=== PATIENT | female | born 1930 | race Caucasian/White ===

== ENCOUNTER 2017-03-27 08:50 | Inpatient (IN) | payer MEDICARE ==
[2017-03-27] VITALS (15 sets, daily range): BP systolic 106–156; BP diastolic 51–141
[~2017-03-27] VITALS: Ht 160 cm; Wt 52.6 kg
[2017-03-27] MEDS ORDERED: ACETAMINOPHEN ES 500 MG TABLET PO ONE (09:00)
[2017-03-27] MEDS ORDERED: IPRATROPIUM NEB FS 0.5 MG/2.5 ML AMPUL.NEB NEB ONE (09:00)
[2017-03-27] MEDS ORDERED: IV NS 0.9% 1,000 ML BAG IV ONE (09:00)
[2017-03-27] MEDS ORDERED: ALBUTEROL FS 2.5 MG/3 ML VIAL.NEB NEB ONE (09:00)
--- NOTE | 2017-03-27 09:00 | NUR ---
PT ACDEN FROM SNF FOR SOB SATING AT 88% RA. PT AAOX3. PLACED ON OXYGEN. AT FOR EVAL. SAFETY AND COMFORT MEASURES PROVIDED. WILL MONITOR.
[2017-03-27] MEDS ORDERED: IPRATROPIUM NEB FS 0.5 MG/2.5 ML AMPUL.NEB ONE (09:06)
[2017-03-27] MEDS ORDERED: ALBUTEROL FS 2.5 MG/3 ML VIAL.NEB ONE (09:06)
[2017-03-27] MEDS ORDERED: ACETAMINOPHEN ES 500 MG TABLET ONE (09:08)
[2017-03-27] MEDS ORDERED: IV NS 0.9% 2,000 ML ONE (09:08)
[2017-03-27] MEDS ORDERED: IV SET PRIMARY PUMP SET 1 EA INFUS.SET MC ONE ×4 (09:08→19:00)
--- NOTE | 2017-03-27 09:20 | NUR ---
PT MEDICATED ORDERED.
[2017-03-27 09:21] LABS: BASOPHILS % (AUTO) 0.2 % (0.0-2.0); EOSINOPHILS % (AUTO) 0.4 % (0.0-6.0); HEMATOCRIT 38 % (33-45); HEMOGLOBIN 12.2 g/dL (11.5-14.8); LYMPHOCYTES # (AUTO) 1.6 /CMM (0.8-4.8); LYMPHOCYTES % (AUTO) 13.3 % (20.0-44.0); MEAN CORPUSCULAR HEMOGLOBIN 27 PG (26.0-33.0); MEAN CORPUSCULAR HGB CONC 32 g/dl (31.0-36.0); MEAN CORPUSCULAR VOLUME 84 fL (82-100); MONOCYTES % (AUTO) 8.1 % (2.0-12.0); NEUTROPHILS # (AUTO) 9.2 /CMM (1.8-8.9); PLATELET COUNT (AUTO) 247 /CMM (150-450); RED BLOOD CELL COUNT(AUTO) 4.55 MIL/uL (4.0-5.2); WHITE BLOOD COUNT (AUTO) 11.8 K/uL (4.3-11.0)
--- NOTE | 2017-03-27 09:33 | NUR ---
SURESH AT BS.
[2017-03-27 09:39] LABS: CALCIUM, SERUM 9.2 mg/dL (8.5-10.1); CREATININE 0.9 mg/dL (0.6-1.3); POTASSIUM 3.9 mmol/L (3.5-5.1)
[2017-03-27] MEDS ORDERED: CT SWABBABLE VALVE TRANS SET 1 EA INFUS.SET MC ONE (09:43)
[2017-03-27] MEDS ORDERED: IOHEXOL-350 100 ML VIAL IV ONE (09:43)
[2017-03-27] MEDS ORDERED: IOPAMIDOL 15 ML VIAL IT ONE (09:44)
[2017-03-27] MEDS ORDERED: IV NS 0.9% 250 ML IV ONE (09:45)
[2017-03-27 09:48] LABS: LACTIC ACID 1.3 mmol/L (0.4-2.0); TROPONIN I 0.022 ng/mL (0.00-0.056)
[2017-03-27 09:49] LABS: PROTHROMBIN TIME 86.2 SECS (9.5-12.7)
[2017-03-27 09:52] LABS: ALBUMIN 2.9 g/dL (3.4-5.0); BILIRUBIN,TOTAL 0.2 mg/dL (0.2-1.0); TOTAL PROTEIN, SERUM 8.3 g/dL (6.4-8.2)
[2017-03-27 09:53] LABS: INR 7.11 (0.87-1.13)
[2017-03-27 09:57] LABS: APPEARANCE,URINE Clear (CLEAR); BILIRUBIN,URINE Negative (NEGATIVE); BLOOD, URINE Trace-intact Ery/uL (NEGATIVE); COLOR,URINE Yellow (YELLOW); KETONES,URINE Trace (NEGATIVE); LEUKOCYTE ESTERASE ,URINE Negative (NEGATIVE); NITRITE, URINE Negative (NEGATIVE); PH,URINE 5.5 (5.0-8.0); PROTEIN,URINE 30 mg/dl (NEGATIVE); UGLUCOSE Negative (NEGATIVE); UROBILINOGEN,URINE 0.2 EU/dL (0.2)
[2017-03-27] MEDS ORDERED: VANCOMYCIN 1 GM in IV D5W 250 ML IV ONE (10:00)
[2017-03-27] MEDS ORDERED: CEFEPIME 1 GM in IV D5W 50 ML IV ONE (10:00)
[2017-03-27 10:04] LABS: ADD URINE CULTURE NO; BACTERIA,URINE Rare /HPF (None Seen); MUCUS,URINE Few /LPF (None Seen); SQUAMOUS EPITHELIAL CELL,UR Few /HPF (None Seen)
[2017-03-27 10:05] LABS: HYALINE CASTS, URINE Rare /LPF (None Seen)
--- NOTE | 2017-03-27 10:07 | NUR ---
HOSPICE SOCIAL WORKER ROLANDO CALLED TO REFUSE CT SCAN, DEMANDING 2ND IV BE PLACED ON AC DUE TO PROTOCOL
[2017-03-27] MEDS: Magnesium 1GM/D5W 100ML PREMIX 100 ML IV SCH ×3 (10:12→21:33)
[2017-03-27] MEDS ORDERED: LACT1CAP57 PO (10:49)
[2017-03-27] MEDS ORDERED: DORZ10DR13 LEFTEYE (10:49)
[2017-03-27] MEDS ORDERED: FURO20TA4 PO (10:49)
[2017-03-27] MEDS ORDERED: ATOR20TA PO (10:49)
[2017-03-27] MEDS ORDERED: SALM50DI IH (10:49)
[2017-03-27] MEDS ORDERED: LEVO75TA7 PO (10:49)
[2017-03-27] MEDS ORDERED: LORA0.5T PO (10:49)
[2017-03-27] MEDS ORDERED: HYDR-552 PO (10:49)
[2017-03-27] MEDS ORDERED: LATA2.5D7 LEFTEYE (10:49)
[2017-03-27] MEDS ORDERED: APIX5TAB PO (10:49)
[2017-03-27] MEDS ORDERED: MIRT7.5T10 PO (10:49)
[2017-03-27] MEDS ORDERED: BISA10SU8 RC (10:49)
[2017-03-27] MEDS ORDERED: ACET325T53 PO (10:49)
[2017-03-27] MEDS ORDERED: SERT100T12 PO (10:49)
[2017-03-27] MEDS ORDERED: CLON0.1T PO (10:49)
[2017-03-27] MEDS ORDERED: LOPE2TAB57 PO (10:49)
[2017-03-27] MEDS ORDERED: DILTIAZEM HCL 25 MG IV ONE (10:56)
[2017-03-27] MEDS ORDERED: MORP2SYR3 IV (10:58)
[2017-03-27] MEDS ORDERED: SENN-74 PO (10:58)
[2017-03-27] MEDS ORDERED: ONDA4SYR IV (10:58)
[2017-03-27] MEDS ORDERED: ZOLP5TAB7 PO (10:58)
[2017-03-27] MEDS ORDERED: NITR0.4T6 SL (10:58)
[2017-03-27] MEDS ORDERED: PANT40TA4 PO (10:58)
[2017-03-27] MEDS ORDERED: DILTIAZEM HCL IV 125 MG in IV D5W 100 ML IV ONE (11:00)
[2017-03-27] MEDS ORDERED: DILTIAZEM HCL 25 MG IV IVP ONE (11:00)
--- NOTE | 2017-03-27 11:14 | NUR ---
CARDIZEM IVP GIVEN, HR DECREASED, BP DECREASED PER MD TO HOLD CARDIZEM IV DRIP FOR NOW AND CLOSELY MONITOR HR. ORDERS CARRIED OUT.
[2017-03-27] MEDS ORDERED: IV NS 0.9% 1,000 ML IV PRN (12:02)
--- NOTE | 2017-03-27 12:10 | NUR ---
DR. BRUNER AT FOR EVAL AND GAVE VERBAL ORDERS TO DC CARDIZEM DRIP AND START PT ON AMIODARONE DRIP.
--- NOTE | 2017-03-27 12:15 | NUR ---
DR. ESPARZA AT BS FOR CINDYAL.
[2017-03-27] MEDS ORDERED: ONDANSETRON HCL IV PRN (12:30)
[2017-03-27] MEDS ORDERED: ACETAMINOPHEN 325 MG TABLET PO PRN ×2 (12:30→13:00)
[2017-03-27] MEDS ORDERED: BISACODYL SUPP (10 MG) 10 MG/SUPP.RECT SUPP.RECT RC PRN (12:30)
[2017-03-27] MEDS ORDERED: [UNRECOGNIZED DRUG - OTHER] IV PRN (12:30)
[2017-03-27] MEDS ORDERED: NITROGLYCERIN 0.4 MG/TAB BOTTLE SL PRN (12:30)
[2017-03-27] MEDS ORDERED: PANTOPRAZOLE 40 MG TABLET.DR PO SCH ×2 (12:30→13:00)
[2017-03-27] MEDS ORDERED: SALMETEROL XINAFOATE 1 DISK DISK IH SCH (12:30)
[2017-03-27] MEDS ORDERED: HYDROCODONE/APAP 5/325MG 1 EACH TABLET PO PRN (12:30)
[2017-03-27] MEDS ORDERED: AMIODARONE 150 MG in IV D5W 100 ML IV ONE (12:30)
[2017-03-27] MEDS ORDERED: TIMOLOL MAL/DORZOLAM HCL OPHTH 10 ML BOTTLE LEFTEYE SCH (12:30)
[2017-03-27] MEDS ORDERED: AMIODARONE 900 MG in IV D5W 500 ML IV PRN (12:30)
[2017-03-27] MEDS ORDERED: ZOLPIDEM TARTRATE 5 MG TABLET PO PRN ×2 (12:30→13:00)
[2017-03-27 12:49] LABS: THYROID STIMULATING HORMONE 1.831 uIU/mL (0.358-3.74)
[2017-03-27] MEDS ORDERED: ONDANSETRON HCL/PF 4 MG/2 ML VIAL IVP PRN (13:00)
[2017-03-27] MEDS ORDERED: MAGNESIUM HYDROXIDE 30 ML UDC PO PRN (13:00)
[2017-03-27] MEDS ORDERED: Z GUARD REMEDY 2 OZ OINT TP PRN (13:00)
--- NOTE | 2017-03-27 13:49 | NUR ---
REPORT GIVEN TO RONNIE GARCIA FOR ICU ROOM 258.
[2017-03-27 13:52] LABS: ABG BASE EXCESS -5.9 mmol/L; ABG OXYGEN SATURATION 98.9 % (92.0-98.5); ABG PCO2 37.8 mmHg (35.0-45.0); ABG PO2 181.1 mmHg (75.0-100.0); ABG TOTAL HEMOGLOBIN 10.7 G/dL (12.0-16.0); AaDO2 205.1 mmHg; COHb 0.4 % (0.5-1.5); MetHb 0.4 % (0.0-1.5); O2Hb 98.1 % (94.0-97.0); SITE, ABG Right Radial; VENT MODE, BG NON REBREATHER
--- NOTE | 2017-03-27 13:57 | NUR ---
CORRECTION: ABG RESULTS REPORTED TO JOSE BOYD.
[2017-03-27 14:20] LABS: MAGNESIUM 1.5 mg/dL (1.8-2.4); PHOSPHORUS 3.5 mg/dL (2.5-4.9)
--- NOTE | 2017-03-27 14:30 | NUR ---
DR ESPARZA NOTIFIED THAT PT IS FREQUENT, NON PRODUCTIVE COUGH. HI STATED THAT HE WILL PUT SOMETHING FOR THAT.
[2017-03-27] MEDS ORDERED: APIXABAN 5 MG TABLET PO SCH (14:50)
[2017-03-27 14:52] LABS: TROPONIN I 0.022 ng/mL (0.00-0.056)
[2017-03-27] MEDS ORDERED: SECONDARY IV SET 1 EA INFUS.SET MC ONE (14:54)
[2017-03-27] MEDS: IV NS 0.9% 1,000 ML IV PRN (15:06)
[2017-03-27] MEDS ORDERED: MORPHINE SULFATE INJ 2 MG/ML DISP.SYRIN IV PRN (16:00)
[2017-03-27] MEDS ORDERED: FEE PK DOSING 1 MIN EA MC ONE (16:10)
[2017-03-27] MEDS ORDERED: PIPERACILLIN /TAZOBACTAM 4.5 G in IV D5W 50 ML IV SCH (16:12)
[2017-03-27] MEDS: TIMOLOL 0.5% SOLN OPHTH 5 ML BOTTLE LEFTEYE SCH (17:00)
--- NOTE | 2017-03-27 17:00 | NUR ---
MARIO HELD DUE TO HIGH INR, DR OGDEN HERE TO SEE PT. UPDATED ON PROGRESS.
[2017-03-27] MEDS: LEVOTHYROXINE SODIUM 75 MCG TABLET PO SCH ×2 (17:42→18:04)
[2017-03-27] MEDS: DORZOLAMIDE OPTH 2% 10 ML BOTTLE LEFTEYE SCH (17:42)
[2017-03-27] MEDS: LATANOPROST EYE DROP 0.005% 2.5 ML BOTTLE LEFTEYE SCH ×2 (17:42→18:05)
[2017-03-27] MEDS: LACTOBACILLUS RHAMNOSUS GG 1 EACH CAP.SPRINK PO SCH ×2 (17:42→18:03)
--- NOTE | 2017-03-27 18:00 | NUR ---
DAUGHTER AT BEDSIDE, SHE STATED THAT PT GETS COLD SORES FOR WHICH SHE TAKES VALTREX [address] ESPARZA AND GERARDO FOR ORDERS FOR VALTREX, COUGH MEDICINE AND PERHAPS RESPIRATORY THERAPY ORDERS. AWAITING FOR RESPONSE.
[2017-03-27] MEDS: PIPERACILLIN /TAZOBACTAM 4.5 G in IV D5W 50 ML IV SCH (18:05)
--- NOTE | 2017-03-27 19:05 | NUR ---
DECK AND HULL ASSEMBLER: RECEIVED PT A/O X 3. ON 4L 02 VIA NC WT SLIGHTLY LABORED BREATHING. NO C/O PAIN. SR ON OBGYN SPECIALIST. AMIODARONE DRIP CHANGED DOSE RATE AT 0.5MG/MIN OR 16.6ML/HR ORDERED. TOLERATING NS AT 75ML/HR WT NO S/S OF INFILTRATION. UNABLE TO INFUSE MG AT THIS TIME PENDING ANOTHER IV ACCESS. WILL TRY TO PLACE PERIPHERAL IV OR ASK MD FOR MIDLINE INSERTION. CAREGIVER AT BEDSIDE. SAFETY PRECAUTION NOTED.
[2017-03-27] MEDS: SENNOSIDES/DOCUSATE SODIUM 1 TAB TABLET PO SCH (21:10)
[2017-03-27] MEDS: GUAIFENESIN/D-METHORPHAN HB 5 ML UDC PO PRN (21:10)
[2017-03-27] MEDS: SERTRALINE HCL 50 MG TABLET PO SCH (21:10)
[2017-03-27] MEDS: MIRTAZAPINE 15 MG TABLET PO SCH (21:12)
--- NOTE | 2017-03-27 21:35 | NUR ---
LABOR/EXCAVATOR: PT TOLERATED MID LINE INSERTION AND JUST STARTED ON MG 1ST BAG. GIVEN ALL DUE MEDS ORDERED, COUGH SYRUP FOR COUGH AND TYLENOL FOR CDCP=488.5. COOLING MEASURES RENDERED AND REMOVED ALL BLANKETS. WILL CONTINUE TO MONITOR.
--- NOTE | 2017-03-27 22:30 | NUR ---
ART SUPERVISOR: REASSESSED AFTER GIVEN TYLENOL AND COOLING MEASURES WT NO MORE FEVER AT THIS TIME (98.6= ORAL). WILL CONTINUE TO MONITOR.
[2017-03-28] VITALS (25 sets, daily range): BP systolic 88–158; BP diastolic 44–135
--- NOTE | 2017-03-28 | NUR ---
WINDOWS APPLICATION PACKAGER: PLACED ON 7L VIA FACE MASK DUE TO DESAT. AT 85% 02 SAT.
[2017-03-28] MEDS: PIPERACILLIN /TAZOBACTAM 4.5 G in IV D5W 50 ML IV SCH ×2 (00:09→05:43)
[2017-03-28] MEDS: GUAIFENESIN/D-METHORPHAN HB 5 ML UDC PO PRN ×2 (04:31→21:20)
[2017-03-28] MEDS: IV NS 0.9% 1,000 ML IV PRN ×2 (04:32→17:24)
[2017-03-28] MEDS: VANCOMYCIN 0.75 GM in IV D5W 250 ML IV SCH ×2 (04:32→23:11)
[2017-03-28] MEDS ORDERED: SECONDARY IV SET 1 EA INFUS.SET MC ONE (04:38)
[2017-03-28 04:59] LABS: BASOPHILS % (AUTO) 0.3 % (0.0-2.0); HEMATOCRIT 28 % (33-45); LYMPHOCYTES % (AUTO) 13.2 % (20.0-44.0); MEAN CORPUSCULAR HEMOGLOBIN 28 PG (26.0-33.0); MEAN CORPUSCULAR HGB CONC 33 g/dl (31.0-36.0); MEAN CORPUSCULAR VOLUME 84 fL (82-100); MONOCYTES # (AUTO) 1.2 /CMM (0.1-1.30); NEUTROPHILS # (AUTO) 11.8 /CMM (1.8-8.9); NEUTROPHILS % (AUTO) 78.5 % (43.0-81.0); PLATELET COUNT (AUTO) 181 /CMM (150-450); RDW COEFFICIENT OF VARIATION 16.4 (11.5-15.0); RED BLOOD CELL COUNT(AUTO) 3.27 MIL/uL (4.0-5.2)
--- NOTE | 2017-03-28 05:00 | NUR ---
DIRECTOR COLLEGE: PLACED BACK ON 4L O2 VIA NC. REMAINED A/O X 3. NO ACUTE DISTRESS. NO C/O PAIN. BED BATH GIVEN.
[2017-03-28 05:20] LABS: BILIRUBIN,TOTAL 0.1 mg/dL (0.2-1.0); CREATININE 0.6 mg/dL (0.6-1.3); MAGNESIUM 1.5 mg/dL (1.8-2.4); PHOSPHORUS 2.5 mg/dL (2.5-4.9); TROPONIN I 0.089 ng/mL (0.00-0.056)
[2017-03-28 05:27] LABS: THYROID STIMULATING HORMONE 0.379 uIU/mL (0.358-3.74)
[2017-03-28 05:32] LABS: ALBUMIN 1.2 g/dL (3.4-5.0); CALCIUM, SERUM 5.2 mg/dL (8.5-10.1); POTASSIUM 2.2 mmol/L (3.5-5.1)
[2017-03-28] MEDS: PANTOPRAZOLE 40 MG TABLET.DR PO SCH (05:37)
--- NOTE | 2017-03-28 06:00 | NUR ---
GEAR GENERATOR SET UP OPERATOR: NOTIFIED MEDHAT MORA OF CRITICAL RESULTS: K=2.2, ALBUMIN=1.2, CA=5.2 AND MG STILL THE SAME 1.5 AFTER 2GM GIVEN. NO SIGNIFICANT HANNA. ASYMPTOMATIC. VS WITHIN HER BASELINE. DIGITAL MEDIA REPRESENTATIVE WT ORDERS FOR KCL 40MEQ IV AND MG 2GM IV. NOTED AND CARRIED OUT.
[2017-03-28] MEDS ORDERED: Magnesium 1GM/D5W 100ML PREMIX 100 ML IV ONE (06:11)
[2017-03-28] MEDS ORDERED: POTASSIUM CL. PREMIX PERIPHER. 50 ML ONE (06:11)
[2017-03-28] MEDS ORDERED: IV SET PRIMARY PUMP SET 1 EA INFUS.SET MC ONE (06:12)
[2017-03-28] MEDS: POTASSIUM CL. PREMIX PERIPHER. 50 ML IV SCH ×2 (06:19→10:12)
[2017-03-28] MEDS: Magnesium 1GM/D5W 100ML PREMIX 100 ML IV SCH (06:20)
[2017-03-28] MEDS ORDERED: IPRATROPIUM NEB FS 0.5 MG/2.5 ML AMPUL.NEB NEB PRN (07:30)
--- NOTE | 2017-03-28 07:47 | NUR ---
INITIAL TAILINGS DAM LABORER NOTE RCVD PT AWAKE AND ALERT SHOWING NO S/O DISTRESS OR C/O PAIN. SR ON TELE. ON SIMPLE MASK WITH SATURATION ABOVE 95%. PT REPORTS FEELING SOB. RT CALLED FOR BREATHING TX. IV SITES C/D/I/PATENT. NO S/O INFILTRATION OR PHLEBITIS OBSERVED. PT'S PRIVATE CAREGIVER AT BEDSIDE. WILL CONTINUE TO MONITOR FOR SAFETY AND COMFORT. CALL LIGHT WITHIN REACH. BED IN LOW AND LOCKED POSITION.
--- NOTE | 2017-03-28 08:12 | NUR ---
HAZARDOUS SUBSTANCES ENGINEER NOTE DR BRUNER AND DR. ESPARZA IN UNIT RECOMMENDED TO RE-DRAW THE MORNING LABS. ORDER ENTERED.
[2017-03-28] MEDS: LATANOPROST EYE DROP 0.005% 2.5 ML BOTTLE LEFTEYE SCH (08:59)
[2017-03-28] MEDS: LACTOBACILLUS RHAMNOSUS GG 1 EACH CAP.SPRINK PO SCH ×2 (09:01→16:34)
[2017-03-28] MEDS: LEVOTHYROXINE SODIUM 75 MCG TABLET PO SCH (09:06)
[2017-03-28 09:09] LABS: ABG BASE EXCESS -1.6 mmol/L; ABG OXYGEN SATURATION 95.3 % (92.0-98.5); ABG PCO2 59.5 mmHg (35.0-45.0); ABG PH 7.262 (7.350-7.450); ABG TOTAL HEMOGLOBIN 11.3 G/dL (12.0-16.0); AaDO2 129.8 mmHg; COHb 1.1 % (0.5-1.5); MetHb 1.1 % (0.0-1.5); O2Hb 93.2 % (94.0-97.0); SITE, ABG Right Radial; VENT MODE, BG SIMPLE MASK
[2017-03-28] MEDS: TIMOLOL 0.5% SOLN OPHTH 5 ML BOTTLE LEFTEYE SCH ×2 (09:12→16:35)
[2017-03-28] MEDS: DORZOLAMIDE OPTH 2% 10 ML BOTTLE LEFTEYE SCH ×2 (09:13→16:35)
[2017-03-28] MEDS: MIRTAZAPINE 15 MG TABLET PO SCH ×2 (09:15→16:43)
[2017-03-28 09:23] LABS: HEMATOCRIT 33 % (33-45); HEMOGLOBIN 10.5 g/dL (11.5-14.8); LYMPHOCYTES # (AUTO) 1.3 /CMM (0.8-4.8); LYMPHOCYTES % (AUTO) 7.4 % (20.0-44.0); MEAN CORPUSCULAR HEMOGLOBIN 27 PG (26.0-33.0); MEAN CORPUSCULAR HGB CONC 32 g/dl (31.0-36.0); MEAN CORPUSCULAR VOLUME 85 fL (82-100); MONOCYTES # (AUTO) 1.3 /CMM (0.1-1.30); MONOCYTES % (AUTO) 7.8 % (2.0-12.0); NEUTROPHILS # (AUTO) 14.6 /CMM (1.8-8.9); NEUTROPHILS % (AUTO) 84.8 % (43.0-81.0); PLATELET COUNT (AUTO) 177 /CMM (150-450); RDW COEFFICIENT OF VARIATION 16.2 (11.5-15.0); RED BLOOD CELL COUNT(AUTO) 3.88 MIL/uL (4.0-5.2); WHITE BLOOD COUNT (AUTO) 17.3 K/uL (4.3-11.0)
[2017-03-28 09:36] LABS: CALCIUM, SERUM 7.8 mg/dL (8.5-10.1); CREATININE 0.9 mg/dL (0.6-1.3); POTASSIUM 3.7 mmol/L (3.5-5.1)
--- NOTE | 2017-03-28 09:41 | NUR ---
DESIGN CONSULTANT NOTE DR. REYES IN UNIT GIVEN REPORT ON PT'S CONDITION AND CONSTANT VERBALIZATION OF SOB DESPITE BREATHING TX THIS AM. PT ASSESSED BY DR. REYES. NEW ORDERS RCVD AND ACKNOWLEDGED.
[2017-03-28 09:42] LABS: ALBUMIN 2.3 g/dL (3.4-5.0); BILIRUBIN,TOTAL 0.3 mg/dL (0.2-1.0); MAGNESIUM 2.2 mg/dL (1.8-2.4); PHOSPHORUS 3.2 mg/dL (2.5-4.9); TOTAL PROTEIN, SERUM 7.1 g/dL (6.4-8.2)
[2017-03-28 09:50] LABS: PROTHROMBIN TIME 93.5 SECS (9.5-12.7)
[2017-03-28 09:52] LABS: INR 7.67 (0.87-1.13)
--- NOTE | 2017-03-28 10:15 | NUR ---
BLOCK SORTER NOTE RE-DRAWN LAB WORK RESULTS RCVD MG AND K REPORTED WNL. MAG SULFATE AND KCL MEDS WERE NOT ADMINISTERED. DR. ESPARZA MADE AWARE. INR RESULTS WERE ALSO REPORTED. NO NEW ORDERES RCVD.
[2017-03-28] MEDS: methylPREDNISolone SOD SUCC 125 MG/2ML VIAL IV SCH ×3 (10:25→23:12)
[2017-03-28] MEDS: ACYCLOVIR 200 MG CAPSULE PO SCH ×3 (11:16→21:21)
[2017-03-28] MEDS: PIPERACILLIN /TAZOBACTAM 3.375 G in IV D5W 50 ML IV SCH ×2 (11:17→17:23)
[2017-03-28] MEDS: IPRATROPIUM NEB FS 0.5 MG/2.5 ML AMPUL.NEB NEB SCH ×4 (11:24→23:29)
[2017-03-28] MEDS: ALBUTEROL HALF STRENGTH 1.25 MG/3 ML VIAL.NEB NEB SCH ×4 (11:24→23:29)
[2017-03-28] MEDS: ACETYLCYSTEINE 10% SOLN 400 MG/4 ML VIAL NEB SCH ×2 (11:25→20:12)
[2017-03-28 13:11] LABS: ABG BASE EXCESS -0.8 mmol/L; ABG OXYGEN SATURATION 91.6 % (92.0-98.5); ABG PCO2 51.2 mmHg (35.0-45.0); ABG PH 7.319 (7.350-7.450); ABG TOTAL HEMOGLOBIN 10.6 G/dL (12.0-16.0); AaDO2 104.3 mmHg; COHb 0.4 % (0.5-1.5); MetHb 1.1 % (0.0-1.5); O2Hb 90.2 % (94.0-97.0); SITE, ABG Right Radial; VENT MODE, BG NASAL CANNULA
[2017-03-28] MEDS: AMIODARONE HCL 200 MG TABLET PO SCH (16:34)
--- NOTE | 2017-03-28 16:47 | NUR ---
BACTERIOLOGY RESEARCH ASSISTANT NOTE HERMELINDO JUARES PT FEELS VERY SLEEPY, AND LOW BP EARLIER THIS AFTERNOON. WILL CONTINUE TO MONITOR.
--- NOTE | 2017-03-28 18:51 | NUR ---
LIFE ENRICHMENT MANAGER NOTE PT AWAKE AND ALERT SHOWING NO S/O DISTRESS. TOLERATING O2 VIA NC. SR W/1ST AVB. VOIDING WELL TO DIAPER. RIGHT FA#20 DISCONTINUED EARLIER TODAY. GEORGINA MIDLINE REMAINS C/D/I/PATENT. NO S/O INFILTRATION OR PHLEBITIS OBSERVED. PT'S CARE WILL BE ENDORSED TO RN DIABETES RN AT CHANGE OF SHIFT. BED IN LOW AND LOCKED POSITION. CALL LIGHT WITHIN REACH.
--- NOTE | 2017-03-28 19:30 | NUR ---
FLOSSER: RECEIVED PT A/O X 3. ON 2L VIA NC WT NO ACUTE DISTRESS. NO C/O PAIN. HAD SMALL BOWEL MOVEMENT (SOFT-FORMED, BROWN COLOR) AFTER GIVEN SUPPOSITORY BY DAY SHIFT RN. PT STILL VERBALIZED THAT SHE IS CONSTIPATED. GOOD SKIN/CEM CARE RENDERED. WILL ADMINISTER MOM AND SEN[place]OT ORDERED. VS WITHIN HER BASELINE. WILL CONTINUE TO MONITOR.
[2017-03-28] MEDS: SENNOSIDES/DOCUSATE SODIUM 1 TAB TABLET PO SCH (21:20)
[2017-03-28] MEDS: ATORVASTATIN 10 MG TABLET PO SCH (21:21)
[2017-03-28] MEDS: SERTRALINE HCL 50 MG TABLET PO SCH (21:21)
[2017-03-29] VITALS (20 sets, daily range): BP systolic 103–159; BP diastolic 54–106
[2017-03-29] MEDS: PIPERACILLIN /TAZOBACTAM 3.375 G in IV D5W 50 ML IV SCH ×5 (00:31→23:39)
--- NOTE | 2017-03-29 03:15 | NUR ---
PEST CONTROLLER ASSISTANT: 0250: RECEIVED BLE DOPPLER US RESULT WT POSITIVE DVT ON LEFT POPLITEAL VEIN. 0305: RELAYED RESULT TO MORGAN MELÉNDEZ AND MADE HIM AWARE THAT ANTICOAGULANT IS ON HOLD DUE TO CRITICALLY HIGH INR=7.67 (5/) FROM 7.11, HAS HX OF LEFT HIP DVT. ACCOUNT SUPPORT ASSOCIATE WT ORDER FOR PT/INR AND APTT TODAY AND FOLLOW UP WT ROUNDING MD IN AM. NOTED AND CARRIED OUT. NO SIGNIFICANT HANNA AT THIS TIME. REMAINED A/O X 3. NO ACUTE DISTRESS. NO C/O PAIN.
[2017-03-29] MEDS: IPRATROPIUM NEB FS 0.5 MG/2.5 ML AMPUL.NEB NEB SCH ×6 (03:50→22:36)
[2017-03-29] MEDS: ALBUTEROL HALF STRENGTH 1.25 MG/3 ML VIAL.NEB NEB SCH ×6 (03:50→22:36)
--- NOTE | 2017-03-29 04:30 | NUR ---
WHOLESALE AGRONOMIST: BOWEL REGIMEN GIVEN WT GOOD EFFECT. HAD 1 MODERATE AMT. OF SOFT BROWN STOOLS. PT VERBALIZED SHE FELT MORE RELIEVED FROM BEING CONSTIPATED.
[2017-03-29 04:50] LABS: HEMATOCRIT 28 % (33-45); HEMOGLOBIN 9.2 g/dL (11.5-14.8); LYMPHOCYTES # (AUTO) 0.7 /CMM (0.8-4.8); LYMPHOCYTES % (AUTO) 5.5 % (20.0-44.0); MEAN CORPUSCULAR HEMOGLOBIN 28 PG (26.0-33.0); MEAN CORPUSCULAR HGB CONC 33 g/dl (31.0-36.0); MEAN CORPUSCULAR VOLUME 85 fL (82-100); MONOCYTES # (AUTO) 0.3 /CMM (0.1-1.30); MONOCYTES % (AUTO) 2.1 % (2.0-12.0); NEUTROPHILS # (AUTO) 11.5 /CMM (1.8-8.9); NEUTROPHILS % (AUTO) 92.4 % (43.0-81.0); PLATELET COUNT (AUTO) 164 /CMM (150-450); RDW COEFFICIENT OF VARIATION 16.3 (11.5-15.0); RED BLOOD CELL COUNT(AUTO) 3.31 MIL/uL (4.0-5.2); WHITE BLOOD COUNT (AUTO) 12.4 K/uL (4.3-11.0)
[2017-03-29 05:29] LABS: PROTHROMBIN TIME 82.9 SECS (9.5-12.7)
[2017-03-29 05:30] LABS: ALBUMIN 1.9 g/dL (3.4-5.0); BILIRUBIN,TOTAL 0.2 mg/dL (0.2-1.0); CALCIUM, SERUM 7.6 mg/dL (8.5-10.1); MAGNESIUM 1.8 mg/dL (1.8-2.4); PHOSPHORUS 2.1 mg/dL (2.5-4.9); TOTAL PROTEIN, SERUM 6.4 g/dL (6.4-8.2)
[2017-03-29 05:31] LABS: TROPONIN I 0.033 ng/mL (0.00-0.056)
[2017-03-29] MEDS: methylPREDNISolone SOD SUCC 125 MG/2ML VIAL IV SCH ×5 (05:37→23:39)
[2017-03-29] MEDS: PANTOPRAZOLE 40 MG TABLET.DR PO SCH (05:39)
[2017-03-29 05:41] LABS: INR 6.85 (0.87-1.13)
[2017-03-29 05:47] LABS: POTASSIUM 2.8 mmol/L (3.5-5.1)
--- NOTE | 2017-03-29 05:50 | NUR ---
RACK MAKER: RECEIVED CRITICAL LAB FOR K=2.8 AND PT/INR DRAWN FROM MIDLINE. WILL REDRAW ALL LABS VIA PERIPHERAL LINE TO VERIFY RESULTS. NO HANNA AT THIS TIME.
[2017-03-29 06:54] LABS: EOSINOPHILS % (AUTO) 0.2 % (0.0-6.0); HEMATOCRIT 29 % (33-45); HEMOGLOBIN 9.4 g/dL (11.5-14.8); LYMPHOCYTES # (AUTO) 0.8 /CMM (0.8-4.8); LYMPHOCYTES % (AUTO) 6.3 % (20.0-44.0); MEAN CORPUSCULAR HEMOGLOBIN 27 PG (26.0-33.0); MEAN CORPUSCULAR HGB CONC 33 g/dl (31.0-36.0); MEAN CORPUSCULAR VOLUME 84 fL (82-100); MONOCYTES # (AUTO) 0.2 /CMM (0.1-1.30); MONOCYTES % (AUTO) 1.6 % (2.0-12.0); NEUTROPHILS % (AUTO) 91.9 % (43.0-81.0); PLATELET COUNT (AUTO) 164 /CMM (150-450); RDW COEFFICIENT OF VARIATION 16.5 (11.5-15.0); RED BLOOD CELL COUNT(AUTO) 3.45 MIL/uL (4.0-5.2); WHITE BLOOD COUNT (AUTO) 13.1 K/uL (4.3-11.0)
[2017-03-29 07:21] LABS: PROTHROMBIN TIME 74.5 SECS (9.5-12.7)
[2017-03-29 07:23] LABS: INR 6.2 (0.87-1.13)
--- NOTE | 2017-03-29 07:30 | NUR ---
ICU/RN: PT RECEIVED ON O2 2L/MIN VIA NC, NO DISTRESS NOTED, BREATHING EVEN AND UNLABORED, PRODUCTIVE COUGH NOTED WITH RHONCHI AUSCULTATED THROUGHOUT. EDUCATED ON POC, SAFETY MEASURES. WILL CONT TO MONITOR. LAB REDRAW RESULTS STILL PENDING.
[2017-03-29 07:34] LABS: ALBUMIN 2.2 g/dL (3.4-5.0); BILIRUBIN,TOTAL 0.3 mg/dL (0.2-1.0); CREATININE 1.1 mg/dL (0.6-1.3); PHOSPHORUS 2.2 mg/dL (2.5-4.9); TOTAL PROTEIN, SERUM 7.3 g/dL (6.4-8.2)
[2017-03-29 07:39] LABS: TROPONIN I 0.033 ng/mL (0.00-0.056)
[2017-03-29] MEDS: ACETYLCYSTEINE 10% SOLN 400 MG/4 ML VIAL NEB SCH ×2 (07:43→19:31)
--- NOTE | 2017-03-29 09:00 | NUR ---
ICU/RN: PT REQUESTS TO TAKE AM MEDS LATER, PER PT "I'LL HAVE IT WITH MY BREAKFAST LATER, I HAVENT SLEPT MUCH LAST NIGHT."
[2017-03-29 09:45] LABS: ABG BASE EXCESS 1.6 mmol/L; ABG OXYGEN SATURATION 91.6 % (92.0-98.5); ABG PCO2 42.4 mmHg (35.0-45.0); ABG PH 7.412 (7.350-7.450); ABG PO2 61.4 mmHg (75.0-100.0); ABG TOTAL HEMOGLOBIN 9.3 G/dL (12.0-16.0); AaDO2 88.2 mmHg; MetHb 1.3 % (0.0-1.5); O2Hb 89.5 % (94.0-97.0); SITE, ABG Right Radial; VENT MODE, BG NASAL CANNULA
[2017-03-29] MEDS: DORZOLAMIDE OPTH 2% 10 ML BOTTLE LEFTEYE SCH ×2 (09:54→16:43)
[2017-03-29] MEDS: TIMOLOL 0.5% SOLN OPHTH 5 ML BOTTLE LEFTEYE SCH ×2 (09:54→16:43)
[2017-03-29] MEDS: LEVOTHYROXINE SODIUM 75 MCG TABLET PO SCH (09:55)
[2017-03-29] MEDS: LACTOBACILLUS RHAMNOSUS GG 1 EACH CAP.SPRINK PO SCH ×2 (09:55→16:40)
[2017-03-29] MEDS: MIRTAZAPINE 15 MG TABLET PO SCH ×2 (09:55→16:40)
[2017-03-29] MEDS: ACYCLOVIR 200 MG CAPSULE PO SCH ×3 (09:55→16:40)
[2017-03-29] MEDS: AMIODARONE HCL 200 MG TABLET PO SCH ×2 (09:55→16:41)
[2017-03-29] MEDS ORDERED: POTASSIUM CHLORIDE 20 MEQ TAB.PRT.SR PO SCH (12:00)
[2017-03-29] MEDS: POTASSIUM CHLORIDE 20 MEQ TAB.PRT.SR PO SCH ×3 (12:03→14:21)
[2017-03-29] MEDS: IV NS 0.9% 1,000 ML IV PRN (12:03)
--- NOTE | 2017-03-29 17:30 | NUR ---
ICU/RN: PT TRANSFERRED TO [facility] IN STABLE CONDITION ACCOMPANIED BY RN AND PRECISION GRINDER EXTERNAL, ALL BELONGINGS ACCOUNTED FOR, VERIFIED WITH DAUGHTER ELISA PRIOR TO TRANSFER. CARE ENDORSED TO JOSE EISENBERG.
--- NOTE | 2017-03-29 17:30 | NUR ---
RN NOTES RECEIVED PT IN ROOM 104 FROM ICU, PT IS A/Ox4, RESPIRATION EVEN AND UNLABORED, ON O2 AT 2L N/C, NO SOB NOTED, ON TELE SR IN 90'S, LEFT UPPER ARM MIDLINE CDI, NS AT 75CC/ HR RUNNING WELL, SR UP x3, CALL LIGHT WITHIN EASY REACH , CONTINUE TO MONITOR PT CLOSELY AND NOTIFY MD FOR ANY SIGNIFICANT CHANGES.
[2017-03-29] MEDS ORDERED: NEUTRA PHOS 1 POWD.PACKET PO ONE (18:00)
[2017-03-29] MEDS: VANCOMYCIN 0.75 GM in IV D5W 250 ML IV SCH (18:28)
--- NOTE | 2017-03-29 18:41 | NUR ---
RN NOTES PT STABLE, PT JOANNE ANY DISTRESS ,
--- NOTE | 2017-03-29 20:00 | NUR ---
RN NOTES RECEIVED PX AWAKE, ALERT, ORIENTED X 3, ON NC AT 3 LPM; SR ON MONITOR; LEFT UPPER ARM MIDLINE, DRESSING CLEAN,DRY,INTACT; NOTED MULTIPLE BRUISES SEE PICTURES AND SKIN FLOWSHEET; WITH DIAPER ON; HEELS OFFLOADED; PX DENIED PAIN, SOB, N/V; CALL LIGHT WITHIN REACH; DISCUSSED PLAN OF CARE.
[2017-03-29] MEDS: SENNOSIDES/DOCUSATE SODIUM 1 TAB TABLET PO SCH (21:03)
[2017-03-29] MEDS: HYDROCODONE/APAP 5/325MG 1 EACH TABLET PO PRN (21:03)
[2017-03-29] MEDS: ATORVASTATIN 10 MG TABLET PO SCH (21:03)
[2017-03-29] MEDS: SERTRALINE HCL 50 MG TABLET PO SCH (21:03)
[2017-03-29] MEDS: LATANOPROST EYE DROP 0.005% 2.5 ML BOTTLE LEFTEYE SCH (21:04)
[2017-03-29] MEDS ORDERED: LORAZEPAM 0.5 MG TABLET ONE (22:34)
[2017-03-29] MEDS ORDERED: LORAZEPAM 0.5 MG TABLET PO ONE (23:00)
[2017-03-29] MEDS ORDERED: LORAZEPAM 0.5 MG TABLET PO PRN (23:00)
--- NOTE | 2017-03-29 23:00 | NUR ---
RN NOTES PX COMPLAINED OF "I CANNOT BREATHE", RESP EVEN, TACHYPNEIC AT 24/MIN, SL WHEEZING, O2 SAT 94%, CONTINUED ON NC AT 3 LPM; PX SAYS SHE IS ANXIOUS, DOES NOT WANT TO BE LEFT ALONE; CALLED CRISTIAN QUARLES COLLAR PACKER, INFORMED OF CURRENT PX CONDITION, NEW ORDERS MADE. RT GIVING BREATHING TX AT BEDSIDE.
[2017-03-30] VITALS: BP 139/68
--- NOTE | 2017-03-30 00:49 | NUR ---
RN NOTES PX CALM, DENIED PAIN, SOB, N/V; O2 SAT AT 96%, RESP EVEN AND UNLABORED, (-) WHEEZING.
[2017-03-30] MEDS: GUAIFENESIN/D-METHORPHAN HB 5 ML UDC PO PRN ×2 (02:50→16:18)
[2017-03-30] MEDS: IPRATROPIUM NEB FS 0.5 MG/2.5 ML AMPUL.NEB NEB SCH ×5 (03:29→20:03)
[2017-03-30] MEDS: ALBUTEROL HALF STRENGTH 1.25 MG/3 ML VIAL.NEB NEB SCH ×5 (03:29→20:04)
[2017-03-30 04:00] VITALS: BP 113/64
--- NOTE | 2017-03-30 04:25 | NUR ---
RN NOTES CONDITION AND NEURO STATUS UNCHANGED; DENIED PAIN, SOB, N/V; DENIED COUGH; CONTINUED MONITORING.
[2017-03-30] MEDS: PANTOPRAZOLE 40 MG TABLET.DR PO SCH (05:27)
[2017-03-30] MEDS: methylPREDNISolone SOD SUCC 125 MG/2ML VIAL IV SCH ×4 (05:27→23:08)
[2017-03-30] MEDS: PIPERACILLIN /TAZOBACTAM 3.375 G in IV D5W 50 ML IV SCH ×4 (05:27→23:08)
--- NOTE | 2017-03-30 06:24 | NUR ---
RN NOTES CONDITION AND NEURO STATUS UNCHANGED; DENIED PAIN, SOB, N/V; EARLY AM CARE RENDERED; CHANGED DIAPER; NO NEW SKIN BREAKDOWN, PROCEDURE TOLERATED; ORAL CARE RENDERED; IV ACCESS PATENT AND INTACT; SR ON MONITOR; WILL ENDORSE TO NEXT RN.
[2017-03-30 07:05] LABS: CALCIUM, SERUM 7.9 mg/dL (8.5-10.1); CREATININE 0.8 mg/dL (0.6-1.3); PHOSPHORUS 1.7 mg/dL (2.5-4.9); POTASSIUM 4.4 mmol/L (3.5-5.1)
--- NOTE | 2017-03-30 07:39 | NUR ---
MO RN NTE PATIENT IN BED, RESTING COMFORTABLY . NO SOB NOTED AT THIS TIME , ON TELE MONITOR SR 83 , LT UA MID LINE , IN PLACE , NO S\S INFECTION NOTED , ON IVF ORDERED BED IN LOWEST AND LOCKED POSITION ,WILL CONT TO MONITOR CLOSELY
[2017-03-30 08:00] VITALS: BP 152/83
[2017-03-30] MEDS: LEVOTHYROXINE SODIUM 75 MCG TABLET PO SCH (09:03)
[2017-03-30] MEDS: LACTOBACILLUS RHAMNOSUS GG 1 EACH CAP.SPRINK PO SCH ×2 (09:05→16:18)
[2017-03-30] MEDS: AMIODARONE HCL 200 MG TABLET PO SCH ×2 (09:08→16:19)
[2017-03-30] MEDS: MIRTAZAPINE 15 MG TABLET PO SCH ×2 (09:10→16:18)
[2017-03-30] MEDS: ACYCLOVIR 200 MG CAPSULE PO SCH ×3 (09:10→16:18)
[2017-03-30] MEDS: DORZOLAMIDE OPTH 2% 10 ML BOTTLE LEFTEYE SCH ×2 (09:12→16:20)
[2017-03-30] MEDS: TIMOLOL 0.5% SOLN OPHTH 5 ML BOTTLE LEFTEYE SCH ×2 (09:16→16:20)
[2017-03-30] MEDS: ACETYLCYSTEINE 10% SOLN 400 MG/4 ML VIAL NEB SCH ×2 (09:35→20:03)
--- NOTE | 2017-03-30 09:43 | NUR ---
MO RN NOTE C\O SOB ,RT AT BEDSIDE, BREATHING TX DONE ,WILL CONT TO MONITOR CLOSELY, ALSO MADE BM ,KEEP CLEAN DRY , REFUSING BREAKFAST AT THIS TIME WILL CONT TO MONITOR CLOSELY
--- NOTE | 2017-03-30 10:30 | NUR ---
MO RN NOTE SPOKE WITH DR BRUNER NOTIFIED THAT PATIENT WITH SEVERE ANXIOUS , STATED THAT NEED TO REPORT TO DR REYES WILL CONT TO MONITOR CLOSELY
[2017-03-30] MEDS: VANCOMYCIN 0.75 GM in IV D5W 250 ML IV SCH (10:43)
--- NOTE | 2017-03-30 10:51 | NUR ---
MO RN NOTE' SPOKE WITH DR ESPARZA NOTICED THAT PATENT GET EASILY ANXIOUS STATED NEED PT EVAL AND START TO USE INTENSIVE SPIROMETER
[2017-03-30 12:00] VITALS: BP 142/78
--- NOTE | 2017-03-30 12:00 | NUR ---
MO RN NOTE PT AT BEDSIDE BUT PATIENT REFUSED THERAPY STATED I HAVE SOB ,WILL TRY TOMORROW
--- NOTE | 2017-03-30 14:53 | NUR ---
MO RN NOTE USING INCENTIVE SPIROMETER EFFECTIVELY
[2017-03-30] MEDS ORDERED: K PHOS NEUTRAL 250 MG TABLET PO ONE (15:30)
[2017-03-30] MEDS: IV NS 0.9% 1,000 ML IV PRN (15:50)
--- NOTE | 2017-03-30 15:54 | NUR ---
MO RN NOTE DR ESPARZA AWARE THAT PHOS 1.7 WI TH NEW ORDER TO GIVE KPHOS , ORDER CARRIED OUT, DIETITIAN AT BEDSIDE FOOD MENU DISCUSSED WITH HER
[2017-03-30 16:00] VITALS: BP 152/73
--- NOTE | 2017-03-30 16:07 | NUR ---
MO RN NTE OFFERED TO GET OUT OFF BED BUT REFUSED STATED I HAVE SOB WHEN GET UP EXPANDED HOW IMPORTANCE TO GET OUT OFF BED STILL REFUSED ,WILL F\U
--- NOTE | 2017-03-30 16:43 | NUR ---
MO RN NOTE WITH NONPRODUCTIVE COUGH ROBITUSSIN GIVEN , ON BREATHING TX ORDERED
[2017-03-30 20:00] VITALS: BP 154/81
[2017-03-30] MEDS: SENNOSIDES/DOCUSATE SODIUM 1 TAB TABLET PO SCH (20:47)
[2017-03-30] MEDS ORDERED: LORAZEPAM 0.5 MG TABLET ONE (20:50)
--- NOTE | 2017-03-30 20:54 | NUR ---
RN;TELE: PT EXTREMELY ANXIOUS AND RESTLESS. PT STATING THAT SHE NEEDS ATIVAN TO SLEEP. PT EDUCATED REGARDING THIS MEDICATION AND OTHER METHODS TO INDUCE RELAXATION THAT DO NOT INVOLVE MEDICATION. PT NOT INTERESTED IN OTHER RELAXATION TECHNIQUES AND DEMANDS ATIVAN. ROBOTICS TECHNOLOGIST SERVICE DESK DIRECTOR NOTIFIED REGARDING ISSUE. NEW ORDERS FOR A ONE TIME DOSE FOR ATIVAN AND HAVE DAYSHIFT FOLLOW UP. ORDERS CARRIED OUT.
[2017-03-30] MEDS ORDERED: LORAZEPAM 0.5 MG TABLET PO ONE (21:00)
[2017-03-30] MEDS: ATORVASTATIN 10 MG TABLET PO SCH (21:01)
[2017-03-30] MEDS: LATANOPROST EYE DROP 0.005% 2.5 ML BOTTLE LEFTEYE SCH (21:01)
[2017-03-30] MEDS: SERTRALINE HCL 50 MG TABLET PO SCH (21:01)
--- NOTE | 2017-03-30 21:46 | NUR ---
RN:TELE: PT REMAINS EXTREMELY ANXIOUS USING CALL LIGHT EVERY FEW MINUTES, DESPITE ATTEMPTING TO MEET ALL PATIENT NEEDS BEFORE LEAVING THE ROOM. PT REQUIRES CONSTANT REASSURANCE. CASUALTY UNDERWRITER CLEANED PATIENT 3 TIMES SINCE START OF SHIFT. PT REFUSED STOOL SOFTENER AND EYE DROPS. WILL ENDORSE TO ONCOMING SHIFT. RELAXATION TECHNIQUES AND WARM BLANKETS PROVIDED. CALL LIGHT IN REACH.
[2017-03-30] MEDS: LOPERAMIDE HCL (2 MG CAP) 2 MG CAPSULE PO PRN (22:56)
[2017-03-31] VITALS (7 sets, daily range): BP systolic 134–168; BP diastolic 74–90
[2017-03-31] MEDS: ALBUTEROL HALF STRENGTH 1.25 MG/3 ML VIAL.NEB NEB SCH ×7 (00:01→23:00)
[2017-03-31] MEDS ORDERED: SECONDARY IV SET 1 EA INFUS.SET MC ONE ×2 (04:11→12:34)
[2017-03-31] MEDS: IPRATROPIUM NEB FS 0.5 MG/2.5 ML AMPUL.NEB NEB SCH ×7 (04:26→23:01)
[2017-03-31] MEDS: VANCOMYCIN 0.75 GM in IV D5W 250 ML IV SCH ×2 (05:16→22:08)
[2017-03-31] MEDS: PANTOPRAZOLE 40 MG TABLET.DR PO SCH (05:17)
[2017-03-31] MEDS: PIPERACILLIN /TAZOBACTAM 3.375 G in IV D5W 50 ML IV SCH ×4 (05:17→23:10)
[2017-03-31] MEDS: methylPREDNISolone SOD SUCC 125 MG/2ML VIAL IV SCH ×4 (05:17→23:10)
--- NOTE | 2017-03-31 07:18 | NUR ---
RN INITIAL NOTES: Rec'd pt asleep on bed, not in any distress. Pt on O2 at 3lpm/NC, not in any respiratory distress but w/ non productive cough noted. Pt is A/O x3-4. On telemonitor, SR w/ HR 84 bpm. Pt has GEORGINA midline patent & intact w/ NS at 75 cc/hr infusing well w/ no signs of infection/ infiltration noted. Needs attended. Provided comfort & safety measures. Call light placed w/in reach. Bed kept low & in locked position. Will continue to monitor.
[2017-03-31 07:34] LABS: CALCIUM, SERUM 7.9 mg/dL (8.5-10.1); CREATININE 0.7 mg/dL (0.6-1.3); POTASSIUM 3.2 mmol/L (3.5-5.1)
[2017-03-31 07:35] LABS: PHOSPHORUS 2.6 mg/dL (2.5-4.9)
[2017-03-31] MEDS: ACETYLCYSTEINE 10% SOLN 400 MG/4 ML VIAL NEB SCH ×2 (07:56→20:03)
[2017-03-31] MEDS: ACYCLOVIR 200 MG CAPSULE PO SCH ×3 (08:42→17:22)
[2017-03-31] MEDS: LEVOTHYROXINE SODIUM 75 MCG TABLET PO SCH (08:42)
[2017-03-31] MEDS: AMIODARONE HCL 200 MG TABLET PO SCH ×2 (08:42→17:23)
[2017-03-31] MEDS: MIRTAZAPINE 15 MG TABLET PO SCH ×2 (08:42→17:23)
[2017-03-31] MEDS: LACTOBACILLUS RHAMNOSUS GG 1 EACH CAP.SPRINK PO SCH ×2 (08:42→17:22)
[2017-03-31] MEDS: TIMOLOL 0.5% SOLN OPHTH 5 ML BOTTLE LEFTEYE SCH ×2 (10:00→17:22)
[2017-03-31] MEDS: DORZOLAMIDE OPTH 2% 10 ML BOTTLE LEFTEYE SCH ×2 (10:01→17:22)
[2017-03-31] MEDS ORDERED: IV SET PRIMARY PUMP SET 1 EA INFUS.SET MC ONE (10:04)
[2017-03-31] MEDS: IV NS 0.9% 1,000 ML IV PRN (10:09)
[2017-03-31 11:09] LABS: HEMATOCRIT 30 % (33-45); HEMOGLOBIN 9.6 g/dL (11.5-14.8); LYMPHOCYTES # (AUTO) 0.6 /CMM (0.8-4.8); LYMPHOCYTES % (AUTO) 6.4 % (20.0-44.0); MEAN CORPUSCULAR HEMOGLOBIN 27 PG (26.0-33.0); MEAN CORPUSCULAR HGB CONC 32 g/dl (31.0-36.0); MEAN CORPUSCULAR VOLUME 83 fL (82-100); MONOCYTES # (AUTO) 0.3 /CMM (0.1-1.30); NEUTROPHILS # (AUTO) 8.6 /CMM (1.8-8.9); NEUTROPHILS % (AUTO) 90.6 % (43.0-81.0); PLATELET COUNT (AUTO) 197 /CMM (150-450); RDW COEFFICIENT OF VARIATION 16.6 (11.5-15.0); RED BLOOD CELL COUNT(AUTO) 3.59 MIL/uL (4.0-5.2); WHITE BLOOD COUNT (AUTO) 9.5 K/uL (4.3-11.0)
[2017-03-31] MEDS: POTASSIUM CHLORIDE 20 MEQ TAB.PRT.SR PO SCH ×2 (12:34→13:35)
--- NOTE | 2017-03-31 18:47 | NUR ---
RN CLOSING NOTES: No acute changes noted w/in shift. Pt on O2 at 3lpm/NC, not in any respiratory distress but still w/ non productive cough noted. Pt is A/O x3-4. On telemonitor, still SR w/ HR 88 bpm. GEORGINA midline kept patent & intact w/ NS at 75 cc/hr infusing well w/ no signs of infection/ infiltration noted. Needs attended. Kept well rested & warm. Call light placed w/in reach. Bed kept low & in locked position. Will endorse to PM RN for HANNA.
--- NOTE | 2017-03-31 19:30 | NUR ---
RN INITIAL NOTES RECEIVED PT AWAKE ON BED, A/O X4. ON 3L NASAL CANNULA, NO S/S OF RESP DISTRESS, SATURATING WELL. CURRENTLY SR ON THE MONITOR, HR 80'S. PT HAS DIAPERS ONLY. LEFT UPPER ARM MIDLINE WITH NS @ 75MLS/HR, FLUSHED AND PATENT, NO S/S OF INFILTRATION/INFECTION, DRESSING CDI. BED LOW AND LOCKED, SIDERAILS UP, CALL LIGHT WITHIN REACH. WILL MONITOR
[2017-03-31] MEDS: CLONIDINE HCL 0.1 MG TABLET PO PRN (20:26)
--- NOTE | 2017-03-31 21:55 | NUR ---
RN NOTES TALKED TO [facility] SCREED OPERATOR HARDWOOD FLOOR LAYER MORGAN QUARLES IN REGARDS TO CURRENT BP 172/88 WITH HR 82. 80MIN AGO, BP WAS 174/89 AND WAS GIVEN CATAPRES 0.1MG PO. ALSO TOLD HIM THAT PATIENT WAS ASKING FOR ATIVAN PO FOR ANXIETY. MEDHAT MORA ORDERED ONE TIME ORDER OF ATIVAN 0.5MG PO AND TO MONITOR THE BP. IF SBP REMAINS TO BE GREATER THAN 160, WILL CALL AGAIN
[2017-03-31] MEDS ORDERED: LORAZEPAM 0.5 MG TABLET PO ONE (22:00)
[2017-03-31] MEDS ORDERED: LORAZEPAM 0.5 MG TABLET ONE (22:01)
[2017-03-31] MEDS: SENNOSIDES/DOCUSATE SODIUM 1 TAB TABLET PO SCH (22:09)
[2017-03-31] MEDS: ATORVASTATIN 10 MG TABLET PO SCH (22:09)
[2017-03-31] MEDS: SERTRALINE HCL 50 MG TABLET PO SCH (22:09)
[2017-03-31] MEDS ORDERED: LATANOPROST EYE DROP 0.005% 2.5 ML BOTTLE ONE (22:26)
[2017-03-31] MEDS: LATANOPROST EYE DROP 0.005% 2.5 ML BOTTLE LEFTEYE SCH (22:48)
[2017-04-01] VITALS: BP 194/96
[2017-04-01] MEDS ORDERED: hydrALAZINE HCL IV 20 MG VIAL ONE (00:34)
--- NOTE | 2017-04-01 00:35 | NUR ---
RN NOTES NOTIFIED FINISHER SCREWDOWN TRADE SHOW COORDINATOR MORGAN ABOUT PATIENT BP'S OF 194/96 AND 199/100. MEDHAT MORA ORDERED 10MG HYDRALAZINE IV PUSH ONE TIME. RECHECK BLOOD PRESSURE AND NOTIFY HIM IF SBP > 160
[2017-04-01 01:00] VITALS: BP 121/63
[2017-04-01] MEDS ORDERED: hydrALAZINE HCL IV 20 MG VIAL IV ONE (01:00)
[2017-04-01] MEDS: ALBUTEROL HALF STRENGTH 1.25 MG/3 ML VIAL.NEB NEB SCH ×6 (03:19→23:10)
[2017-04-01] MEDS: IPRATROPIUM NEB FS 0.5 MG/2.5 ML AMPUL.NEB NEB SCH ×6 (03:19→23:10)
[2017-04-01 04:00] VITALS: BP 140/76
[2017-04-01] MEDS: PANTOPRAZOLE 40 MG TABLET.DR PO SCH (05:23)
[2017-04-01] MEDS: PIPERACILLIN /TAZOBACTAM 3.375 G in IV D5W 50 ML IV SCH ×3 (05:23→17:52)
[2017-04-01] MEDS: IV NS 0.9% 1,000 ML IV PRN (05:23)
[2017-04-01] MEDS: methylPREDNISolone SOD SUCC 125 MG/2ML VIAL IV SCH ×2 (05:24→12:26)
--- NOTE | 2017-04-01 06:30 | NUR ---
RN CLOSING NOTES PT REMAINS STABLE OF THE MOMENT. ALL DUE MEDS GIVEN, AM CARE PROVIDED. WILL ENDORSE TO AM RN
--- NOTE | 2017-04-01 07:18 | NUR ---
RN INITIAL NOTES: Rec'd pt asleep on bed, verbally arousable, A/O x3. Pt on O2 at 3lpm/NC, saturating at 98%, still w/ non productive cough noted. On telemonitor, SR w/ HR 84 bpm. Pt has GEORGINA midline patent & intact w/ NS at 75 cc/hr infusing well w/ no signs of infection/ infiltration noted. Needs attended. Provided comfort & safety measures. Call light placed w/in reach. Bed kept low & in locked position. Will continue to monitor.
[2017-04-01] MEDS: ACETYLCYSTEINE 10% SOLN 400 MG/4 ML VIAL NEB SCH ×2 (07:30→19:44)
[2017-04-01 07:49] LABS: CALCIUM, SERUM 8.1 mg/dL (8.5-10.1); CREATININE 0.8 mg/dL (0.6-1.3)
[2017-04-01 07:53] LABS: POTASSIUM 2.7 mmol/L (3.5-5.1)
[2017-04-01 08:00] VITALS: BP 156/89
[2017-04-01 08:04] LABS: INR 2.04 (0.87-1.13); PROTHROMBIN TIME 22.9 SECS (9.5-12.7)
[2017-04-01] MEDS: TIMOLOL 0.5% SOLN OPHTH 5 ML BOTTLE LEFTEYE SCH ×2 (08:48→17:52)
[2017-04-01] MEDS: LEVOTHYROXINE SODIUM 75 MCG TABLET PO SCH (08:49)
[2017-04-01] MEDS: MIRTAZAPINE 15 MG TABLET PO SCH ×2 (08:49→18:00)
[2017-04-01] MEDS: LACTOBACILLUS RHAMNOSUS GG 1 EACH CAP.SPRINK PO SCH ×2 (08:49→17:52)
[2017-04-01] MEDS: DORZOLAMIDE OPTH 2% 10 ML BOTTLE LEFTEYE SCH ×2 (08:49→17:52)
[2017-04-01] MEDS: AMIODARONE HCL 200 MG TABLET PO SCH ×2 (08:49→17:54)
[2017-04-01] MEDS: ACYCLOVIR 200 MG CAPSULE PO SCH ×3 (08:49→17:52)
--- NOTE | 2017-04-01 09:00 | NUR ---
RN NOTES: Dr. Garvey notified of HTN SBP > 190's episode last night w/ orders & carried out. MD also made aware of critical value potassium & magnesium level w/ orders & carried out.
[2017-04-01 09:45] LABS: MAGNESIUM 1.2 mg/dL (1.8-2.4)
[2017-04-01] MEDS: POTASSIUM CHLORIDE 20 MEQ TAB.PRT.SR PO SCH ×5 (10:02→14:47)
[2017-04-01] MEDS: VALSARTAN 80 MG TABLET PO SCH (10:03)
[2017-04-01] MEDS ORDERED: SECONDARY IV SET 1 EA INFUS.SET MC ONE (10:19)
[2017-04-01] MEDS: Magnesium 1GM/D5W 100ML PREMIX 100 ML IV SCH ×4 (10:23→13:35)
[2017-04-01 16:00] VITALS: BP 108/63
[2017-04-01] MEDS: VANCOMYCIN 0.75 GM in IV D5W 250 ML IV SCH (17:51)
[2017-04-01] MEDS: LOPERAMIDE HCL (2 MG CAP) 2 MG CAPSULE PO PRN (17:52)
[2017-04-01] MEDS: WARFARIN SODIUM 2 MG TABLET PO SCH (17:53)
--- NOTE | 2017-04-01 19:15 | NUR ---
RN CLOSING NOTES: No acute changes noted w/in shift. Pt on O2 at 3lpm/NC, not in any respiratory distress. Pt is A/O x3-4. GEORGINA midline kept patent & intact w/ NS at 75 cc/hr infusing well w/ no signs of infection/ infiltration noted. Needs attended. Kept well rested & warm. Call light placed w/in reach. Bed kept low & in locked position. Will endorse to PM RN for HANNA.
--- NOTE | 2017-04-01 19:42 | NUR ---
MS RN NOTE PT SITTING UP IN CHAIR. A/O X 4, NO SOB, NO DISTRESS OR DISCOMFORT NOTED. DENIES PAIN. ON O2 2L VIA N/C O2 SAT 98%. INFUSING VANCO IVPB AT THIS TIME, NO S/S OF INFILTRATION NOTED, GEORGINA MIDLINE INTACT AND PATENT. RT AT BED SIDE TO GIVE BTX. PT IS WITH PRODUCTIVE COUGH. ALL NEEDS ATTENDED. SIDE RAILS UP X 2 AND CALL LIGHT WITHIN REACH. VSS. CONTINUE TO MONITOR HER.
[2017-04-01 20:00] VITALS: BP 156/79
[2017-04-01] MEDS: SENNOSIDES/DOCUSATE SODIUM 1 TAB TABLET PO SCH (21:26)
[2017-04-01] MEDS: SERTRALINE HCL 50 MG TABLET PO SCH (21:27)
[2017-04-01] MEDS: LATANOPROST EYE DROP 0.005% 2.5 ML BOTTLE LEFTEYE SCH (21:27)
[2017-04-01] MEDS ORDERED: LORAZEPAM 0.5 MG TABLET ONE (21:58)
[2017-04-01] MEDS ORDERED: LORAZEPAM 0.5 MG TABLET PO ONE (22:00)
--- NOTE | 2017-04-01 22:00 | NUR ---
MS RN NOTE PT WANT SLEEPING MED, AND STATES "ATIVAN WORK BEST AND I DON'T WANT AMBIEN". MORGAN PIPE ORGAN TECHNICIAN CALLED AND RECEIVED NEW ORDER. ATIVAN 0.5 MG PO GIVEN. CONTINUE TO MONITOR HER.
--- NOTE | 2017-04-01 23:00 | NUR ---
MS RN NOTE PT FALL ASLEEP, NO DISTRESS NOTED.
[2017-04-02] MEDS: PIPERACILLIN /TAZOBACTAM 3.375 G in IV D5W 50 ML IV SCH ×4 (00:18→17:45)
[2017-04-02] MEDS: IPRATROPIUM NEB FS 0.5 MG/2.5 ML AMPUL.NEB NEB SCH ×6 (03:17→23:33)
[2017-04-02] MEDS: ALBUTEROL HALF STRENGTH 1.25 MG/3 ML VIAL.NEB NEB SCH ×6 (03:18→23:33)
[2017-04-02 04:00] VITALS: BP 134/81
[2017-04-02] MEDS: PANTOPRAZOLE 40 MG TABLET.DR PO SCH (05:55)
--- NOTE | 2017-04-02 06:30 | NUR ---
MS RN NOTE PT IN BED ASLEEP, AROUSABLE. NO DISTRESS OR DISCOMFORT NOTED. DENIES PAIN. H/L INTACT AND PATENT. SIDE RAILS UP X 3 AND CALL LIGHT WITHIN REACH. WILL ENDORSE TO DAY SHIFT NURSE FOR CONTINUE TO CARE.
[2017-04-02 06:40] LABS: ALBUMIN 1.9 g/dL (3.4-5.0); BILIRUBIN,TOTAL 0.3 mg/dL (0.2-1.0); CALCIUM, SERUM 8.3 mg/dL (8.5-10.1); MAGNESIUM 2.4 mg/dL (1.8-2.4); PHOSPHORUS 3.4 mg/dL (2.5-4.9); POTASSIUM 4.3 mmol/L (3.5-5.1); TOTAL PROTEIN, SERUM 6.2 g/dL (6.4-8.2)
[2017-04-02] MEDS: ACETYLCYSTEINE 10% SOLN 400 MG/4 ML VIAL NEB SCH ×2 (07:30→20:02)
[2017-04-02 08:00] VITALS: BP 145/75
[2017-04-02] MEDS: ACYCLOVIR 200 MG CAPSULE PO SCH ×3 (08:16→16:39)
[2017-04-02] MEDS: AMIODARONE HCL 200 MG TABLET PO SCH ×2 (08:17→16:39)
[2017-04-02] MEDS: LACTOBACILLUS RHAMNOSUS GG 1 EACH CAP.SPRINK PO SCH ×2 (08:17→16:36)
[2017-04-02] MEDS: LEVOTHYROXINE SODIUM 75 MCG TABLET PO SCH (08:17)
[2017-04-02] MEDS: VALSARTAN 80 MG TABLET PO SCH (08:18)
[2017-04-02] MEDS: MIRTAZAPINE 15 MG TABLET PO SCH ×2 (08:18→16:36)
[2017-04-02] MEDS: DORZOLAMIDE OPTH 2% 10 ML BOTTLE LEFTEYE SCH ×2 (08:20→17:45)
[2017-04-02] MEDS: TIMOLOL 0.5% SOLN OPHTH 5 ML BOTTLE LEFTEYE SCH ×2 (08:20→17:45)
[2017-04-02] MEDS ORDERED: IV NS 0.9% 250 ML IV ONE (08:27)
[2017-04-02] MEDS ORDERED: methylPREDNISolone SOD SUCC 125 MG/2ML VIAL IV SCH (09:00)
[2017-04-02] MEDS: LOPERAMIDE HCL (2 MG CAP) 2 MG CAPSULE PO PRN (11:34)
[2017-04-02] MEDS: VANCOMYCIN 0.75 GM in IV D5W 250 ML IV SCH (11:34)
--- NOTE | 2017-04-02 13:16 | NUR ---
rn note Dr. Rincon made aware patient has increased work of breathing. O2 sat 93% on 2L NC. order lasix 40mg iv x1 now and cxr and sputum cx
[2017-04-02] MEDS ORDERED: FUROSEMIDE 20 MG/2 ML VIAL IV ONE (13:30)
[2017-04-02 16:00] VITALS: BP 114/91
--- NOTE | 2017-04-02 16:06 | NUR ---
Dr. Rincon made aware of CXR results and that patient has 2 IV atbx and 1 antiviral medication and blood+ urine cx have no growth. Dr.. rincon said ok to order hypertonic saline solution inh if patient cannot produce sputum. informed dr. Keller of cxr results. informed dr. carmela Treadwell that there is not an infection control doctor following patient.
[2017-04-02] MEDS: WARFARIN SODIUM 2 MG TABLET PO SCH (16:38)
--- NOTE | 2017-04-02 19:21 | NUR ---
CLOSING NOTE LEFT PATIENT IN STABLE CONDITION. O2 SAT WNL. BREATHING EVEN AND UNLABORED AT REST. NASAL SWAB AND SPUTUM CULTURE SENT TO LAB. WILL NOTIFY FAMILY SERVICE COUNSELOR NURSE TO COLLECT STOOL SAMPLE- NO STOOL SINCE ORDERED. ISOLATION PRECAUTIONS FOR R/O RESPIRATORY INFECTION OBSERVED. DAUGHTER AT BED SIDE MADE AWARE. PROVIDED FREQUENT CLEANING FOR PATIENT THIS SHIFT. GEORGINA MIDLINE NO COMPLICATIONS. DENIES PAIN. CALL LIGHT IN REACH.
[2017-04-02 20:00] VITALS: BP 152/78
--- NOTE | 2017-04-02 20:39 | NUR ---
RN NOTES: SPOKE TO MD. SEN ABOUT THE TYPE OF PANEL THAT IS REQUIRED FOR THE NASOPHARYNGEAL SWAB. ORDERED THE VIRUS,DIRECT DETECTION DFA,RESPIRATORY PROFILE. LAB IS NOTIFIED.
[2017-04-02] MEDS: SENNOSIDES/DOCUSATE SODIUM 1 TAB TABLET PO SCH (22:05)
[2017-04-02] MEDS: SERTRALINE HCL 50 MG TABLET PO SCH (22:05)
[2017-04-02] MEDS: LATANOPROST EYE DROP 0.005% 2.5 ML BOTTLE LEFTEYE SCH (22:06)
[2017-04-02] MEDS: DOXYCYCLINE HYCLATE (100 MG) 100 MG TABLET PO SCH (22:06)
[2017-04-02] MEDS: ZOLPIDEM TARTRATE 5 MG TABLET PO PRN (23:34)
--- NOTE | 2017-04-02 23:35 | NUR ---
RN NOTES: PATIENT REQUESTED A SLEEPING PILL. MD SEN IS NOTIFIED AND ORDERED AMBIEN 5 MG PO ONCE. PATIENT REFUSED TO TAKE AMBIEN. WILL CONTINUE TO MONITOR.
--- NOTE | 2017-04-03 00:11 | NUR ---
RN NOTES: PATIENT REFUSED TO RECEIVE THE BREATHING TREATMENT THAT IS SCHEDULED TODAY AT 03:30. WILL CONTINUE TO MONITOR.
[2017-04-03] MEDS: PIPERACILLIN /TAZOBACTAM 3.375 G in IV D5W 50 ML IV SCH ×4 (00:29→18:17)
[2017-04-03] MEDS: ALBUTEROL HALF STRENGTH 1.25 MG/3 ML VIAL.NEB NEB SCH ×6 (03:08→23:44)
[2017-04-03] MEDS: IPRATROPIUM NEB FS 0.5 MG/2.5 ML AMPUL.NEB NEB SCH ×6 (03:08→23:44)
[2017-04-03 04:00] VITALS: BP 130/71
[2017-04-03] MEDS: PANTOPRAZOLE 40 MG TABLET.DR PO SCH (05:39)
[2017-04-03] MEDS: VANCOMYCIN 0.75 GM in IV D5W 250 ML IV SCH ×2 (05:39→23:22)
[2017-04-03 06:40] LABS: BASOPHILS % (AUTO) 0.1 % (0.0-2.0); EOSINOPHILS % (AUTO) 0.3 % (0.0-6.0); HEMATOCRIT 30 % (33-45); HEMOGLOBIN 9.6 g/dL (11.5-14.8); LYMPHOCYTES % (AUTO) 16.4 % (20.0-44.0); MEAN CORPUSCULAR HEMOGLOBIN 27 PG (26.0-33.0); MEAN CORPUSCULAR HGB CONC 32 g/dl (31.0-36.0); MEAN CORPUSCULAR VOLUME 83 fL (82-100); MONOCYTES # (AUTO) 1.1 /CMM (0.1-1.30); MONOCYTES % (AUTO) 8.7 % (2.0-12.0); NEUTROPHILS % (AUTO) 74.5 % (43.0-81.0); PLATELET COUNT (AUTO) 321 /CMM (150-450); RDW COEFFICIENT OF VARIATION 16.2 (11.5-15.0); RED BLOOD CELL COUNT(AUTO) 3.63 MIL/uL (4.0-5.2); WHITE BLOOD COUNT (AUTO) 12.1 K/uL (4.3-11.0)
[2017-04-03 06:59] LABS: CALCIUM, SERUM 8.5 mg/dL (8.5-10.1); CREATININE 1.1 mg/dL (0.6-1.3); MAGNESIUM 1.9 mg/dL (1.8-2.4); PHOSPHORUS 4.6 mg/dL (2.5-4.9); POTASSIUM 3.7 mmol/L (3.5-5.1)
[2017-04-03] MEDS: ACETYLCYSTEINE 10% SOLN 400 MG/4 ML VIAL NEB SCH ×2 (07:19→19:56)
[2017-04-03 08:00] VITALS: BP 121/77
[2017-04-03] MEDS: DORZOLAMIDE OPTH 2% 10 ML BOTTLE LEFTEYE SCH ×2 (09:00→17:00)
[2017-04-03] MEDS: TIMOLOL 0.5% SOLN OPHTH 5 ML BOTTLE LEFTEYE SCH ×2 (09:00→17:00)
[2017-04-03] MEDS: methylPREDNISolone SOD SUCC 125 MG/2ML VIAL IV SCH (09:00)
[2017-04-03] MEDS: DOXYCYCLINE HYCLATE (100 MG) 100 MG TABLET PO SCH ×2 (10:48→21:38)
[2017-04-03] MEDS: VALSARTAN 80 MG TABLET PO SCH (10:49)
[2017-04-03] MEDS: AMIODARONE HCL 200 MG TABLET PO SCH ×2 (10:49→17:00)
[2017-04-03] MEDS: MIRTAZAPINE 15 MG TABLET PO SCH ×2 (10:50→17:00)
[2017-04-03] MEDS: LEVOTHYROXINE SODIUM 75 MCG TABLET PO SCH (10:51)
[2017-04-03] MEDS: LACTOBACILLUS RHAMNOSUS GG 1 EACH CAP.SPRINK PO SCH ×2 (10:51→17:00)
[2017-04-03] MEDS: HYDROCODONE/APAP 5/325MG 1 EACH TABLET PO PRN ×2 (12:44→19:30)
--- NOTE | 2017-04-03 14:06 | NUR ---
SPOKE W/ LISBETH SOLANO NEUROSURGEON RELAYED THORACIC XRAY RESULT,WILL SEE PT. IN AM AND ORDERED MRI/CT OF TSPINE,TLS BRACE ORDERED FROM [facility] PROST[facility] SPOKE W/ JO .
--- NOTE | 2017-04-03 14:12 | NUR ---
BEDREST PER MD.
--- NOTE | 2017-04-03 14:23 | NUR ---
TEXTED DR. DR. CACERES FOR MRI APPROVAL.
--- NOTE | 2017-04-03 14:33 | NUR ---
CT OF TS DONE,AWAITS RESULTS,PT. REFUSED MRI.
--- NOTE | 2017-04-03 15:54 | NUR ---
RELAYED TO [place] CT RESULT OF THORACIC SPINE ALSO NOTIFIED PT. REFUSED MRI.
[2017-04-03 16:00] VITALS: BP 137/72
--- NOTE | 2017-04-03 16:05 | NUR ---
[facility] [employer] FITTED PT. W/ BACK BRACE PT. REFUSED,LISBETH NEURO SURGEON AWARE.
[2017-04-03] MEDS: WARFARIN SODIUM 2 MG TABLET PO SCH (17:00)
[2017-04-03 19:07] LABS: INR 1.99 (0.87-1.13); PROTHROMBIN TIME 22.3 SECS (9.5-12.7)
--- NOTE | 2017-04-03 19:40 | NUR ---
MS RN INITIAL NOTE RECEIVED PT WITH FAMILY AT BEDSIDE. A/O X3 AND ABLE TO MAKE NEEDS KNOWN. ISOLATION PRECAUTIONS OBSERVED. ON 2L OF O2 VIA NC AND SATING WELL. CALL LIGHT WITHIN EASY REACH AT ALL TIMES. WILL CONTINUE TO MONITOR.
[2017-04-03 20:00] VITALS: BP 140/76
[2017-04-03] MEDS: SENNOSIDES/DOCUSATE SODIUM 1 TAB TABLET PO SCH (21:38)
[2017-04-03] MEDS: SERTRALINE HCL 50 MG TABLET PO SCH (21:38)
[2017-04-03] MEDS: LATANOPROST EYE DROP 0.005% 2.5 ML BOTTLE LEFTEYE SCH (21:39)
[2017-04-03] MEDS: ZOLPIDEM TARTRATE 5 MG TABLET PO PRN (21:40)
[2017-04-03] MEDS ORDERED: SECONDARY IV SET 1 EA INFUS.SET MC ONE (23:20)
[2017-04-04] MEDS: PIPERACILLIN /TAZOBACTAM 3.375 G in IV D5W 50 ML IV SCH ×5 (00:48→23:14)
[2017-04-04 04:00] VITALS: BP_SYST 160; BP_DIAS 87; BP_DIAS 97
[2017-04-04] MEDS: IPRATROPIUM NEB FS 0.5 MG/2.5 ML AMPUL.NEB NEB SCH ×6 (04:11→23:28)
[2017-04-04] MEDS: ALBUTEROL HALF STRENGTH 1.25 MG/3 ML VIAL.NEB NEB SCH ×6 (04:11→23:28)
[2017-04-04] MEDS: PANTOPRAZOLE 40 MG TABLET.DR PO SCH (06:33)
[2017-04-04 07:05] LABS: CALCIUM, SERUM 8.4 mg/dL (8.5-10.1); POTASSIUM 3.9 mmol/L (3.5-5.1)
[2017-04-04] MEDS: ACETYLCYSTEINE 10% SOLN 400 MG/4 ML VIAL NEB SCH ×2 (07:08→19:53)
--- NOTE | 2017-04-04 07:22 | NUR ---
MS RN CLOSING NOTE PT WITH NO ACUTE DISTRESS NOTED DURING SHIFT. ALL NEEDS ATTENDED TO AND MET PROMPTLY. CALL LIGHT WITHIN REACH AT ALL TIMES. WILL ENDORSE TO NEXT SHIFT FOR HNANA.
[2017-04-04] MEDS: DOXYCYCLINE HYCLATE (100 MG) 100 MG TABLET PO SCH ×2 (09:18→20:21)
[2017-04-04] MEDS: AMIODARONE HCL 200 MG TABLET PO SCH ×2 (09:18→19:05)
[2017-04-04] MEDS: LACTOBACILLUS RHAMNOSUS GG 1 EACH CAP.SPRINK PO SCH ×2 (09:18→19:17)
[2017-04-04] MEDS: VALSARTAN 80 MG TABLET PO SCH (09:18)
[2017-04-04] MEDS: LEVOTHYROXINE SODIUM 75 MCG TABLET PO SCH (09:18)
[2017-04-04] MEDS: MIRTAZAPINE 15 MG TABLET PO SCH ×2 (09:18→19:18)
[2017-04-04] MEDS: TIMOLOL 0.5% SOLN OPHTH 5 ML BOTTLE LEFTEYE SCH ×2 (09:19→19:08)
[2017-04-04] MEDS: DORZOLAMIDE OPTH 2% 10 ML BOTTLE LEFTEYE SCH ×2 (09:19→19:08)
[2017-04-04] MEDS: methylPREDNISolone SOD SUCC 125 MG/2ML VIAL IV SCH (09:19)
[2017-04-04 12:00] VITALS: BP 118/70
[2017-04-04] MEDS: MAG HYDROX/AL HYDROX/SIMETH 30 ML UDC PO PRN (12:36)
[2017-04-04 16:51] LABS: INR 1.94 (0.87-1.13); PROTHROMBIN TIME 21.7 SECS (9.5-12.7)
[2017-04-04] MEDS: WARFARIN SODIUM 2 MG TABLET PO SCH (19:07)
[2017-04-04] MEDS: VANCOMYCIN 0.75 GM in IV D5W 250 ML IV SCH (19:08)
[2017-04-04] MEDS: GUAIFENESIN/D-METHORPHAN HB 5 ML UDC PO PRN (19:08)
[2017-04-04 20:00] VITALS: BP 149/74
--- NOTE | 2017-04-04 20:00 | NUR ---
ms rn notes received pts on bed awake alert and verbally responsive able to make needs known, no sob no distress noted denies pain at this time , all due meds given except senna tab secondary to pts refusal, all needs attended too call light with in reach kept pts clean dry and comfortable, will continue to monitor pts.
--- NOTE | 2017-04-04 20:23 | NUR ---
patient stable at this time .report given to incoming nurse.
[2017-04-04] MEDS: SENNOSIDES/DOCUSATE SODIUM 1 TAB TABLET PO SCH (21:30)
[2017-04-04] MEDS: SERTRALINE HCL 50 MG TABLET PO SCH (21:31)
[2017-04-04] MEDS: ZOLPIDEM TARTRATE 5 MG TABLET PO PRN (21:31)
[2017-04-04] MEDS: LATANOPROST EYE DROP 0.005% 2.5 ML BOTTLE LEFTEYE SCH (21:32)
[2017-04-04] MEDS ORDERED: SECONDARY IV SET 1 EA INFUS.SET MC ONE (23:16)
[2017-04-05] MEDS: IPRATROPIUM NEB FS 0.5 MG/2.5 ML AMPUL.NEB NEB SCH ×6 (03:25→23:24)
[2017-04-05] MEDS: ALBUTEROL HALF STRENGTH 1.25 MG/3 ML VIAL.NEB NEB SCH ×6 (03:26→23:24)
--- NOTE | 2017-04-05 03:26 | NUR ---
RT PT REFUSED HHN TX AT THIS TIME. NO SOB OR RESP DISTRESS NOTED.
[2017-04-05 04:00] VITALS: BP 131/77
[2017-04-05] MEDS: PIPERACILLIN /TAZOBACTAM 3.375 G in IV D5W 50 ML IV SCH ×4 (05:10→23:47)
[2017-04-05] MEDS: PANTOPRAZOLE 40 MG TABLET.DR PO SCH (05:40)
--- NOTE | 2017-04-05 05:52 | NUR ---
ms rn notes pts on bed awake and responsive , no significant change noted , v/s stable afebrile , will endorse to rn day shift for continuity of care.
[2017-04-05] MEDS: MAG HYDROX/AL HYDROX/SIMETH 30 ML UDC PO PRN ×2 (06:19→21:51)
[2017-04-05] MEDS: GUAIFENESIN/D-METHORPHAN HB 5 ML UDC PO PRN ×3 (06:22→18:41)
[2017-04-05 06:31] LABS: BASOPHILS % (AUTO) 0.1 % (0.0-2.0); EOSINOPHILS % (AUTO) 0.4 % (0.0-6.0); HEMATOCRIT 32 % (33-45); HEMOGLOBIN 10.4 g/dL (11.5-14.8); LYMPHOCYTES # (AUTO) 2.2 /CMM (0.8-4.8); MEAN CORPUSCULAR HEMOGLOBIN 27 PG (26.0-33.0); MEAN CORPUSCULAR HGB CONC 32 g/dl (31.0-36.0); MEAN CORPUSCULAR VOLUME 83 fL (82-100); MONOCYTES % (AUTO) 8.4 % (2.0-12.0); NEUTROPHILS % (AUTO) 73.1 % (43.0-81.0); PLATELET COUNT (AUTO) 379 /CMM (150-450); RDW COEFFICIENT OF VARIATION 16.4 (11.5-15.0); RED BLOOD CELL COUNT(AUTO) 3.88 MIL/uL (4.0-5.2); WHITE BLOOD COUNT (AUTO) 12.3 K/uL (4.3-11.0)
[2017-04-05 07:04] LABS: CALCIUM, SERUM 8.6 mg/dL (8.5-10.1); MAGNESIUM 1.6 mg/dL (1.8-2.4); PHOSPHORUS 3.3 mg/dL (2.5-4.9); POTASSIUM 3.7 mmol/L (3.5-5.1)
[2017-04-05] MEDS: ACETYLCYSTEINE 10% SOLN 400 MG/4 ML VIAL NEB SCH ×2 (07:24→19:38)
[2017-04-05 08:00] VITALS: BP 133/73
[2017-04-05] MEDS: TIMOLOL 0.5% SOLN OPHTH 5 ML BOTTLE LEFTEYE SCH ×2 (09:00→18:48)
[2017-04-05] MEDS: DORZOLAMIDE OPTH 2% 10 ML BOTTLE LEFTEYE SCH ×2 (09:00→18:48)
--- NOTE | 2017-04-05 10:47 | NUR ---
Social service consult requested by MONicolas Morales regarding pt's daughter wanting to speak with SW. CECILE met with pt. bedside. Pt. is A&O x 4. According to pt. Dr. Rincon has not communicated with her and her daughter regarding her medical condition and plan of care. Pt.provided active listening and emotional support and informed pt. she will speak to the charge nurse regarding her concerns and will contact her daughter as well. CECILE consulted with charger operator helper Sooni informing her regarding pt's concerns. ROBBIE Rosales informed SW she is aware and MEDHAT Montanez will be seeing he pt. today and she will reiterate to MEDHAT Montanez to communicate with pt and her daughter. CECILE called pt's daughter Tracey who informed SW that issue she was having with no communication with the assigned doctor. Tracey informed CECILE that only Dr. Gordon has spoken to the pt. and her since her admission on 03/27/17. CECILE assured Tracey that pt. will be seen by MEDHAT Montanez and he follow up with pt. and her regarding the plan of care. Tracey was appreciative.
[2017-04-05] MEDS: methylPREDNISolone SOD SUCC 125 MG/2ML VIAL IV SCH (11:08)
[2017-04-05] MEDS: VALSARTAN 80 MG TABLET PO SCH (11:10)
[2017-04-05] MEDS: AMIODARONE HCL 200 MG TABLET PO SCH ×2 (11:11→18:42)
[2017-04-05] MEDS: DOXYCYCLINE HYCLATE (100 MG) 100 MG TABLET PO SCH ×2 (11:12→20:59)
[2017-04-05] MEDS: LACTOBACILLUS RHAMNOSUS GG 1 EACH CAP.SPRINK PO SCH ×2 (11:12→18:41)
[2017-04-05] MEDS: MIRTAZAPINE 15 MG TABLET PO SCH ×2 (11:12→18:47)
[2017-04-05] MEDS: LEVOTHYROXINE SODIUM 75 MCG TABLET PO SCH (11:12)
[2017-04-05 12:00] VITALS: BP 126/68
[2017-04-05 16:00] VITALS: BP 137/73
[2017-04-05] MEDS: Magnesium 1GM/D5W 100ML PREMIX 100 ML IV SCH ×2 (16:01→16:02)
[2017-04-05] MEDS: VANCOMYCIN 0.75 GM in IV D5W 250 ML IV SCH (16:50)
[2017-04-05 18:49] LABS: INR 1.79 (0.87-1.13); PROTHROMBIN TIME 19.9 SECS (9.5-12.7)
[2017-04-05] MEDS: WARFARIN SODIUM 2 MG TABLET PO SCH (18:56)
--- NOTE | 2017-04-05 19:31 | NUR ---
patients magnesium 1.6 .magnesium iv infused.abt infused.patient is stable.all due meds as well as nursing care given and well tolerated at this time .breathing non labored and breathing is even at this time
[2017-04-05 20:00] VITALS: BP 107/60
--- NOTE | 2017-04-05 20:00 | NUR ---
MS RN NOTES RECEIVED PTS IN BED AWAKE ALERT AND VERBALLY RESPONSIVE ABLE TO MAKE NEEDS KNOWN , ON 2 LITERS OF O2 VIA NC SATING 94%,NO SOB NO DISTRESS NOTED DENIES PAIN AT THIS TIME , HOB ELEVATED FOR ASPIRATION PRECAUTION , BREATHING TX GIVEN BY RT ORDERED , ENCOURAGE PTS TO SPIT OUT THE PHLEGM VERBALIZE UNDERSTANDING ,ALL NEEDS ATTENDED TOO CALL LIGHT WITHIN REACH KEPT PTS SAFE DRY CLEAN AND COMFORTABLE, V/S STABLE AFEBRILE . WILL CONTINUE TO MONITOR PTS.
[2017-04-05] MEDS: SENNOSIDES/DOCUSATE SODIUM 1 TAB TABLET PO SCH (21:02)
[2017-04-05] MEDS: LATANOPROST EYE DROP 0.005% 2.5 ML BOTTLE LEFTEYE SCH (21:03)
[2017-04-05] MEDS: SERTRALINE HCL 50 MG TABLET PO SCH (21:04)
[2017-04-05] MEDS: ZOLPIDEM TARTRATE 5 MG TABLET PO PRN (21:53)
[2017-04-05] MEDS ORDERED: IV NS 0.9% 250 ML IV ONE ×2 (23:30→23:33)
[2017-04-06] MEDS: IPRATROPIUM NEB FS 0.5 MG/2.5 ML AMPUL.NEB NEB SCH ×5 (03:20→20:08)
[2017-04-06] MEDS: ALBUTEROL HALF STRENGTH 1.25 MG/3 ML VIAL.NEB NEB SCH ×5 (03:20→20:08)
[2017-04-06 04:00] VITALS: BP 117/65
[2017-04-06 04:09] LABS: EOSINOPHILS # (AUTO) 0.2 /CMM (0.0-0.7); EOSINOPHILS % (AUTO) 0.9 % (0.0-6.0); HEMATOCRIT 30 % (33-45); HEMOGLOBIN 9.8 g/dL (11.5-14.8); LYMPHOCYTES # (AUTO) 1.4 /CMM (0.8-4.8); LYMPHOCYTES % (AUTO) 7.8 % (20.0-44.0); MEAN CORPUSCULAR HEMOGLOBIN 27 PG (26.0-33.0); MEAN CORPUSCULAR HGB CONC 32 g/dl (31.0-36.0); MEAN CORPUSCULAR VOLUME 83 fL (82-100); MONOCYTES # (AUTO) 1.1 /CMM (0.1-1.30); MONOCYTES % (AUTO) 6.1 % (2.0-12.0); NEUTROPHILS % (AUTO) 85.2 % (43.0-81.0); PLATELET COUNT (AUTO) 422 /CMM (150-450); RDW COEFFICIENT OF VARIATION 16.4 (11.5-15.0); RED BLOOD CELL COUNT(AUTO) 3.67 MIL/uL (4.0-5.2); WHITE BLOOD COUNT (AUTO) 17.6 K/uL (4.3-11.0)
[2017-04-06 04:27] LABS: CALCIUM, SERUM 8.3 mg/dL (8.5-10.1); INR 1.82 (0.87-1.13); MAGNESIUM 2.1 mg/dL (1.8-2.4); POTASSIUM 3.5 mmol/L (3.5-5.1); PROTHROMBIN TIME 20.2 SECS (9.5-12.7)
[2017-04-06] MEDS: VANCOMYCIN 0.75 GM in IV D5W 250 ML IV SCH (05:00)
--- NOTE | 2017-04-06 05:00 | NUR ---
MS RN NOTES VANCO TROUGH AT 4AM =IS 22 DOSE FOR 5AM WAS HOLD DUE TO TROUGH LEVEL IS HIGH.
[2017-04-06] MEDS: PIPERACILLIN /TAZOBACTAM 3.375 G in IV D5W 50 ML IV SCH ×3 (05:07→17:04)
[2017-04-06] MEDS: PANTOPRAZOLE 40 MG TABLET.DR PO SCH (05:17)
--- NOTE | 2017-04-06 06:14 | NUR ---
MS RN NOTES PTS ON BED AWAKE AND RESPONSIVE , REMAINS ON 2 LITERS OF NC NO SOB NO DISTRESS NOTED .DUE MEDS AT 6AM GIVEN ORDERED NO SIGNIFICANT CHANGE NOTED .V/S STABLE AFEBRILE , WILL ENDORSE TO RN DAY SHIFT FOR CONTINUITY OF CARE.
[2017-04-06] MEDS: ACETYLCYSTEINE 10% SOLN 400 MG/4 ML VIAL NEB SCH ×2 (07:51→20:08)
[2017-04-06 08:00] VITALS: BP 125/68
[2017-04-06] MEDS: DOXYCYCLINE HYCLATE (100 MG) 100 MG TABLET PO SCH ×2 (09:26→20:45)
[2017-04-06] MEDS: LACTOBACILLUS RHAMNOSUS GG 1 EACH CAP.SPRINK PO SCH ×2 (09:26→17:13)
[2017-04-06] MEDS: methylPREDNISolone SOD SUCC 125 MG/2ML VIAL IV SCH (09:26)
[2017-04-06] MEDS: AMIODARONE HCL 200 MG TABLET PO SCH ×2 (09:28→17:08)
[2017-04-06] MEDS: CLONIDINE HCL 0.1 MG TABLET PO PRN ×2 (09:28→09:29)
[2017-04-06] MEDS: LEVOTHYROXINE SODIUM 75 MCG TABLET PO SCH (09:29)
[2017-04-06] MEDS: TIMOLOL 0.5% SOLN OPHTH 5 ML BOTTLE LEFTEYE SCH ×2 (09:30→17:02)
[2017-04-06] MEDS: DORZOLAMIDE OPTH 2% 10 ML BOTTLE LEFTEYE SCH ×2 (09:30→17:09)
[2017-04-06] MEDS: MIRTAZAPINE 15 MG TABLET PO SCH ×2 (09:55→17:13)
[2017-04-06] MEDS: VALSARTAN 80 MG TABLET PO SCH (09:55)
[2017-04-06 14:19] VITALS: BP 117/65
[2017-04-06 16:00] VITALS: BP 111/61
[2017-04-06] MEDS: WARFARIN SODIUM 2 MG TABLET PO SCH (17:07)
--- NOTE | 2017-04-06 19:08 | NUR ---
pt stable this shift...droplet precautions continue at this time...pt in no distress this shift...v/s remained stable throughtout shift...no diarrhea noted et she did have 3 stools et soft. report given to oncoming shift
[2017-04-06 20:00] VITALS: BP 107/55
--- NOTE | 2017-04-06 20:00 | NUR ---
MS RN NOTES RECEIVED PTS ON BED AWAKE ALERT AND VERBALLY RESPONSIVE, ABLE TO MAKE NEEDS KNOWN. NO SOB NO DISTRESS NOTED , CONT ON DROPLET PRECAUTION, V/S STABLE AFEBRILE , ALL DUE MEDS GIVEN ORDERED ALL NEEDS ATTENDED TOO CALL LIGHT WITHIN REACH, KEPTPTS CLEAN DRY AND COMFORTABLE.
[2017-04-06] MEDS: SERTRALINE HCL 50 MG TABLET PO SCH (21:08)
[2017-04-06] MEDS: SENNOSIDES/DOCUSATE SODIUM 1 TAB TABLET PO SCH (21:09)
[2017-04-06] MEDS: LATANOPROST EYE DROP 0.005% 2.5 ML BOTTLE LEFTEYE SCH (22:29)
[2017-04-06] MEDS: ZOLPIDEM TARTRATE 5 MG TABLET PO PRN (22:30)
[2017-04-07] MEDS: PIPERACILLIN /TAZOBACTAM 3.375 G in IV D5W 50 ML IV SCH ×4 (00:12→17:56)
[2017-04-07] MEDS: IPRATROPIUM NEB FS 0.5 MG/2.5 ML AMPUL.NEB NEB SCH ×7 (00:17→22:52)
[2017-04-07] MEDS: ALBUTEROL HALF STRENGTH 1.25 MG/3 ML VIAL.NEB NEB SCH ×7 (00:17→22:52)
[2017-04-07 04:00] VITALS: BP 157/75
[2017-04-07] MEDS ORDERED: VANCOMYCIN 0.75 GM in IV D5W 250 ML IV SCH (05:00)
[2017-04-07] MEDS: PANTOPRAZOLE 40 MG TABLET.DR PO SCH (05:11)
--- NOTE | 2017-04-07 05:32 | NUR ---
MS RN NOTES PTS ON BED AWAKE ALERT AND VERBALLY RESPONSIVE, V/S STABLE AFEBRILE, NO SOB NO DISTRESS NOTED , DENIES PAIN AT THIS TIME , NO SIGNIFICANT CHANGE NOTED , WILL ENDORSED TO RN DAY SHIFT FOR CONTINUITY OF CARE.
[2017-04-07] MEDS: ACETYLCYSTEINE 10% SOLN 400 MG/4 ML VIAL NEB SCH ×2 (07:21→19:46)
[2017-04-07 07:23] LABS: CALCIUM, SERUM 8.3 mg/dL (8.5-10.1); CREATININE 1.1 mg/dL (0.6-1.3); POTASSIUM 3.6 mmol/L (3.5-5.1)
--- NOTE | 2017-04-07 07:40 | NUR ---
PATIENT HANDOFF ROUNDS. REPOSITIONING OF PATIENT PER REQUEST. GIVEN EXTRA BLANKET PER REQUEST.
[2017-04-07] MEDS: LEVOTHYROXINE SODIUM 75 MCG TABLET PO SCH (08:11)
[2017-04-07 09:04] VITALS: BP 123/67
[2017-04-07] MEDS: MIRTAZAPINE 15 MG TABLET PO SCH ×2 (09:58→16:41)
[2017-04-07] MEDS: LACTOBACILLUS RHAMNOSUS GG 1 EACH CAP.SPRINK PO SCH ×2 (09:58→16:44)
[2017-04-07] MEDS: AMIODARONE HCL 200 MG TABLET PO SCH ×2 (09:58→16:40)
[2017-04-07] MEDS: DOXYCYCLINE HYCLATE (100 MG) 100 MG TABLET PO SCH ×2 (09:58→22:16)
[2017-04-07] MEDS: VALSARTAN 80 MG TABLET PO SCH (09:58)
[2017-04-07] MEDS: methylPREDNISolone SOD SUCC 125 MG/2ML VIAL IV SCH (09:59)
[2017-04-07] MEDS: DORZOLAMIDE OPTH 2% 10 ML BOTTLE LEFTEYE SCH ×2 (10:04→16:45)
[2017-04-07] MEDS: TIMOLOL 0.5% SOLN OPHTH 5 ML BOTTLE LEFTEYE SCH ×2 (10:04→16:46)
[2017-04-07 13:42] LABS: BASOPHILS % (AUTO) 0.2 % (0.0-2.0); HEMATOCRIT 30 % (33-45); HEMOGLOBIN 9.6 g/dL (11.5-14.8); LYMPHOCYTES # (AUTO) 1.4 /CMM (0.8-4.8); LYMPHOCYTES % (AUTO) 11.7 % (20.0-44.0); MEAN CORPUSCULAR HEMOGLOBIN 27 PG (26.0-33.0); MEAN CORPUSCULAR HGB CONC 32 g/dl (31.0-36.0); MEAN CORPUSCULAR VOLUME 84 fL (82-100); MONOCYTES # (AUTO) 0.8 /CMM (0.1-1.30); MONOCYTES % (AUTO) 6.4 % (2.0-12.0); NEUTROPHILS # (AUTO) 9.8 /CMM (1.8-8.9); NEUTROPHILS % (AUTO) 81.7 % (43.0-81.0); PLATELET COUNT (AUTO) 351 /CMM (150-450); RDW COEFFICIENT OF VARIATION 17.6 (11.5-15.0); RED BLOOD CELL COUNT(AUTO) 3.63 MIL/uL (4.0-5.2)
[2017-04-07 16:14] VITALS: BP 107/53
[2017-04-07] MEDS: WARFARIN SODIUM 2 MG TABLET PO SCH (16:43)
[2017-04-07 17:47] LABS: INR 1.75 (0.87-1.13); PROTHROMBIN TIME 19.4 SECS (9.5-12.7)
--- NOTE | 2017-04-07 19:24 | NUR ---
Handoff report to noc nurse. Patient rounds. 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 Voids and also bm in diaper.
[2017-04-07 20:00] VITALS: BP 107/55
[2017-04-07] MEDS: SENNOSIDES/DOCUSATE SODIUM 1 TAB TABLET PO SCH (22:00)
[2017-04-07] MEDS: SERTRALINE HCL 50 MG TABLET PO SCH (22:15)
[2017-04-07] MEDS: ZOLPIDEM TARTRATE 5 MG TABLET PO PRN (22:16)
[2017-04-07] MEDS: LATANOPROST EYE DROP 0.005% 2.5 ML BOTTLE LEFTEYE SCH (22:18)
[2017-04-08] MEDS: PIPERACILLIN /TAZOBACTAM 3.375 G in IV D5W 50 ML IV SCH ×5 (00:48→23:00)
[2017-04-08] MEDS: IPRATROPIUM NEB FS 0.5 MG/2.5 ML AMPUL.NEB NEB SCH ×6 (03:53→23:30)
[2017-04-08] MEDS: ALBUTEROL HALF STRENGTH 1.25 MG/3 ML VIAL.NEB NEB SCH ×6 (03:53→23:30)
[2017-04-08 04:00] VITALS: BP 128/62
[2017-04-08] MEDS: PANTOPRAZOLE 40 MG TABLET.DR PO SCH (06:00)
[2017-04-08] MEDS: ACETYLCYSTEINE 10% SOLN 400 MG/4 ML VIAL NEB SCH ×2 (07:26→20:19)
--- NOTE | 2017-04-08 07:30 | NUR ---
RN NOTES RECEIVED PATIENT IN BED ASLEEP WITH BREATHING NORMAL, EVEN AND UNLABORED. NO SOB NOTED. NO ACUTE DISTRESS NOTED. DENIES ANY PAIN OR DISCOMFORT. GEORGINA MIDLINE IS PATENT AND INTACT. BOWEL SOUND PRESENT. PULSES PRESENT. SAFETY MEASURE OBSERVED. ALL NEEDS ATTENDED. CALL LIGHT WITH IN REACH. WILL CONT TO MONITOR.
[2017-04-08 08:00] VITALS: BP 117/58
[2017-04-08 08:14] LABS: BASOPHILS % (AUTO) 0.3 % (0.0-2.0); EOSINOPHILS % (AUTO) 0.2 % (0.0-6.0); HEMATOCRIT 33 % (33-45); HEMOGLOBIN 10.5 g/dL (11.5-14.8); LYMPHOCYTES # (AUTO) 2.2 /CMM (0.8-4.8); LYMPHOCYTES % (AUTO) 16.3 % (20.0-44.0); MEAN CORPUSCULAR HEMOGLOBIN 27 PG (26.0-33.0); MEAN CORPUSCULAR HGB CONC 32 g/dl (31.0-36.0); MEAN CORPUSCULAR VOLUME 84 fL (82-100); MONOCYTES # (AUTO) 1.2 /CMM (0.1-1.30); MONOCYTES % (AUTO) 8.6 % (2.0-12.0); NEUTROPHILS # (AUTO) 10.2 /CMM (1.8-8.9); NEUTROPHILS % (AUTO) 74.6 % (43.0-81.0); PLATELET COUNT (AUTO) 387 /CMM (150-450); RDW COEFFICIENT OF VARIATION 16.7 (11.5-15.0); RED BLOOD CELL COUNT(AUTO) 3.91 MIL/uL (4.0-5.2); WHITE BLOOD COUNT (AUTO) 13.7 K/uL (4.3-11.0)
[2017-04-08] MEDS: LEVOTHYROXINE SODIUM 75 MCG TABLET PO SCH (08:21)
[2017-04-08] MEDS: predniSONE 20 MG TABLET PO SCH (08:22)
[2017-04-08] MEDS: DOXYCYCLINE HYCLATE (100 MG) 100 MG TABLET PO SCH (08:23)
[2017-04-08] MEDS: MIRTAZAPINE 15 MG TABLET PO SCH ×2 (08:23→17:47)
[2017-04-08] MEDS: AMIODARONE HCL 200 MG TABLET PO SCH ×2 (08:23→17:47)
[2017-04-08] MEDS: LACTOBACILLUS RHAMNOSUS GG 1 EACH CAP.SPRINK PO SCH ×2 (08:23→17:46)
[2017-04-08] MEDS: VALSARTAN 80 MG TABLET PO SCH (08:24)
[2017-04-08] MEDS: DORZOLAMIDE OPTH 2% 10 ML BOTTLE LEFTEYE SCH ×2 (08:25→17:48)
[2017-04-08] MEDS: TIMOLOL 0.5% SOLN OPHTH 5 ML BOTTLE LEFTEYE SCH ×2 (08:25→17:48)
[2017-04-08 08:28] LABS: CALCIUM, SERUM 8.4 mg/dL (8.5-10.1); CREATININE 1.2 mg/dL (0.6-1.3); POTASSIUM 3.6 mmol/L (3.5-5.1)
--- NOTE | 2017-04-08 14:00 | NUR ---
RN NOTES RELAYED M PNEUMONIAE RESULTS TO DR VINCENT WILLETT AND MAGDALENA MELÉNDEZ WITH NNO. WILL CONT TO MONITOR.
[2017-04-08 16:00] VITALS: BP 117/64
--- NOTE | 2017-04-08 17:00 | NUR ---
RN NOTES COUMADIN DID NOT ADMINISTER , STILL WAITING FOR PT/INR RESULTS. WILL CONT TO MONITOR.
[2017-04-08 19:02] LABS: INR 1.92 (0.87-1.13); PROTHROMBIN TIME 21.4 SECS (9.5-12.7)
--- NOTE | 2017-04-08 19:17 | NUR ---
RN NOTES PATIENT ENDORSED TO NEXT SHIFT IN STABLE CONDITION FOR CONTINUITY OF CARE. NO SIGNIFICANT CHANGES NOTED. KEPT CLEAN, DRY AND COMFORTABLE. ALL NEEDS ATTENDED. SAFETY MEASURE OBSERVED. CALL LIGHT WITH IN REACH. WILL CONT TO MONITOR.
--- NOTE | 2017-04-08 19:18 | NUR ---
RN NOTES COUMADIN DID NOT ADMINISTER , STILL WAITING FOR PT/INR RESULTS. ENDORSED TO NEXT SHIFT TO F/U. WILL CONT TO MONITOR.
[2017-04-08] MEDS: WARFARIN SODIUM 2 MG TABLET PO SCH (19:23)
[2017-04-08 20:00] VITALS: BP 137/75
--- NOTE | 2017-04-08 20:00 | NUR ---
RN NOTES - RECEIVED PATIENT IN BED ASLEEP WITH BREATHING NORMAL, EVEN AND UNLABORED. NO SOB NOTED. NO ACUTE DISTRESS NOTED. DENIES ANY PAIN OR DISCOMFORT. GEORGINA MIDLINE IS PATENT AND INTACT, NO BLOOD RETURN. BOWEL SOUND PRESENT. PULSES PRESENT. SAFETY MEASURE OBSERVED. ALL NEEDS ATTENDED. CALL LIGHT WITH IN REACH. WILL CONT TO MONITOR.
[2017-04-08 20:10] LABS: SUBTYPE NOVEL H1N1 PCR Negative (Negative)
[2017-04-08] MEDS: SERTRALINE HCL 50 MG TABLET PO SCH (21:40)
[2017-04-08] MEDS: SENNOSIDES/DOCUSATE SODIUM 1 TAB TABLET PO SCH (21:40)
[2017-04-08] MEDS: ZOLPIDEM TARTRATE 5 MG TABLET PO PRN (21:40)
[2017-04-08] MEDS: LATANOPROST EYE DROP 0.005% 2.5 ML BOTTLE LEFTEYE SCH (21:43)
[2017-04-09] MEDS: ALBUTEROL HALF STRENGTH 1.25 MG/3 ML VIAL.NEB NEB SCH ×7 (00:59→23:22)
[2017-04-09] MEDS: IPRATROPIUM NEB FS 0.5 MG/2.5 ML AMPUL.NEB NEB SCH ×7 (00:59→23:22)
[2017-04-09 04:00] VITALS: BP 117/60
[2017-04-09] MEDS ORDERED: SECONDARY IV SET 1 EA INFUS.SET MC ONE ×3 (05:43→17:38)
[2017-04-09] MEDS ORDERED: IV SET PRIMARY PUMP SET 1 EA INFUS.SET MC ONE (05:43)
[2017-04-09] MEDS ORDERED: IV NS 0.9% 250 ML IV ONE (05:43)
[2017-04-09] MEDS: PIPERACILLIN /TAZOBACTAM 3.375 G in IV D5W 50 ML IV SCH ×3 (05:44→19:14)
[2017-04-09] MEDS: PANTOPRAZOLE 40 MG TABLET.DR PO SCH (05:44)
[2017-04-09] MEDS: ACETYLCYSTEINE 10% SOLN 400 MG/4 ML VIAL NEB SCH ×2 (07:14→20:09)
[2017-04-09 07:16] LABS: HEMATOCRIT 30 % (33-45); HEMOGLOBIN 9.7 g/dL (11.5-14.8); LYMPHOCYTES # (AUTO) 2.1 /CMM (0.8-4.8); LYMPHOCYTES % (AUTO) 15.5 % (20.0-44.0); MEAN CORPUSCULAR HEMOGLOBIN 27 PG (26.0-33.0); MEAN CORPUSCULAR HGB CONC 32 g/dl (31.0-36.0); MEAN CORPUSCULAR VOLUME 84 fL (82-100); MONOCYTES # (AUTO) 1.1 /CMM (0.1-1.30); MONOCYTES % (AUTO) 7.9 % (2.0-12.0); NEUTROPHILS # (AUTO) 10.5 /CMM (1.8-8.9); NEUTROPHILS % (AUTO) 76.6 % (43.0-81.0); PLATELET COUNT (AUTO) 329 /CMM (150-450); RDW COEFFICIENT OF VARIATION 17.2 (11.5-15.0); RED BLOOD CELL COUNT(AUTO) 3.63 MIL/uL (4.0-5.2); WHITE BLOOD COUNT (AUTO) 13.7 K/uL (4.3-11.0)
[2017-04-09 07:18] LABS: CALCIUM, SERUM 8.4 mg/dL (8.5-10.1); POTASSIUM 3.6 mmol/L (3.5-5.1)
[2017-04-09 07:36] LABS: MAGNESIUM 1.7 mg/dL (1.8-2.4)
[2017-04-09 08:00] VITALS: BP 143/65
[2017-04-09] MEDS: LACTOBACILLUS RHAMNOSUS GG 1 EACH CAP.SPRINK PO SCH ×2 (08:49→16:54)
[2017-04-09] MEDS: VALSARTAN 80 MG TABLET PO SCH (08:49)
[2017-04-09] MEDS: AMIODARONE HCL 200 MG TABLET PO SCH ×2 (08:50→16:53)
[2017-04-09] MEDS: LEVOTHYROXINE SODIUM 75 MCG TABLET PO SCH (08:50)
[2017-04-09] MEDS: predniSONE 20 MG TABLET PO SCH (08:50)
[2017-04-09] MEDS: MIRTAZAPINE 15 MG TABLET PO SCH ×2 (08:50→16:54)
[2017-04-09] MEDS: TIMOLOL 0.5% SOLN OPHTH 5 ML BOTTLE LEFTEYE SCH ×2 (08:51→16:52)
[2017-04-09] MEDS: DORZOLAMIDE OPTH 2% 10 ML BOTTLE LEFTEYE SCH ×2 (08:51→16:52)
[2017-04-09] MEDS: Magnesium 1GM/D5W 100ML PREMIX 100 ML IV SCH ×2 (10:55→11:54)
[2017-04-09] MEDS ORDERED: ALBU1.25 NEB (13:56)
[2017-04-09] MEDS ORDERED: Ipratropium Bromide NEB (13:56)
[2017-04-09] MEDS ORDERED: AMIO200T7 PO (13:56)
[2017-04-09] MEDS ORDERED: Valsartan PO (13:56)
[2017-04-09] MEDS ORDERED: ONCOUMADIN PO (13:56)
[2017-04-09] MEDS ORDERED: GUAI5SYR PO (13:56)
[2017-04-09] MEDS ORDERED: PRED20TA PO (13:56)
[2017-04-09] MEDS ORDERED: PRED5TAB48 PO (13:56)
[2017-04-09] MEDS ORDERED: WARF2TAB57 PO (13:56)
[2017-04-09 16:00] VITALS: BP 158/92
[2017-04-09] MEDS: WARFARIN SODIUM 2 MG TABLET PO SCH (16:54)
--- NOTE | 2017-04-09 19:30 | NUR ---
closing note patient stable at end of shift, breathing and LOC WNL. handed off report to night nurse at bedside. call light in reach
--- NOTE | 2017-04-09 19:30 | NUR ---
RN INITIAL NOTES PT IS BED RESTING, A/Ox4, HARD OF HEARING, ON NC SATURATING WELL, DENIES OF PAIN. MIDLINE FLUSHED AND PATENT, STILL ON DROPLET ISOLATION. ASSISTED PT OF CHANGING POSITION. BED LOCKED AND LOWEST POSITION, CALL LIGHT WITHIN REACH.
[2017-04-09 20:00] VITALS: BP 125/68
[2017-04-09] MEDS: SENNOSIDES/DOCUSATE SODIUM 1 TAB TABLET PO SCH (21:52)
[2017-04-09] MEDS: SERTRALINE HCL 50 MG TABLET PO SCH (21:52)
[2017-04-09] MEDS: ZOLPIDEM TARTRATE 5 MG TABLET PO PRN (21:52)
[2017-04-09] MEDS: LATANOPROST EYE DROP 0.005% 2.5 ML BOTTLE LEFTEYE SCH (21:54)
[2017-04-10] MEDS: IPRATROPIUM NEB FS 0.5 MG/2.5 ML AMPUL.NEB NEB SCH ×6 (03:13→23:26)
[2017-04-10] MEDS: ALBUTEROL HALF STRENGTH 1.25 MG/3 ML VIAL.NEB NEB SCH ×6 (03:14→23:26)
[2017-04-10 04:00] VITALS: BP 133/64
[2017-04-10] MEDS: PANTOPRAZOLE 40 MG TABLET.DR PO SCH (06:35)
--- NOTE | 2017-04-10 06:51 | NUR ---
RN CLOSING NOTES NO SIGNIFICANT CHANGES OVERNIGHT, PT IS SLEEPING COMFORTABLY, TOLERATING NC 3L SATURATING 96%, GEORGINA MIDLINE IS FLUSHED AND PATENT ON SL. NO S/SX OF INFECTION OR INFILTRATION NOTED. ASSISTED PT WITH ADL'S, SKIN INTACT, ON DROPLET ISOLATION, ALL SAFETY MEASURES MET, BED LOCKED AND IN LOWEST POSITION, CALL LIGHTS WITHIN REACH. PT REQUESTED TO SPEAK WITH FORENSIC STRUCTURAL ENGINEER AND ANY MD TO SPEAK WITH HER ABOUT HER OVERALL HEALTH STATUS PRIOR TO DISCHARGE, WILL ENDORSE TO AM NURSE FOR CONTINUATION OF CARE.
--- NOTE | 2017-04-10 07:00 | NUR ---
RN NOTES RECEIVED PT ON BED , A/Ox4, HARD OF HEARING, RESPIRATION EVEN AND UNLABORED , NO SOB NOTED, ON O2 AT 3L N/C , LEFT UPPER ARM MIDLINE CDI, ASSISTED PT OF CHANGING POSITION. BED LOCKED AND IN LOWEST POSITION, CALL LIGHT WITHIN EASY REACH. CONTINUE TO MONITOR PT CLOSELY AND NOTIFY MD FOR ANY SIGNIFICANT CHANGES .
[2017-04-10] MEDS: ACETYLCYSTEINE 10% SOLN 400 MG/4 ML VIAL NEB SCH ×2 (07:15→19:52)
[2017-04-10 07:49] LABS: CALCIUM, SERUM 8.4 mg/dL (8.5-10.1); POTASSIUM 3.7 mmol/L (3.5-5.1)
[2017-04-10 08:00] VITALS: BP 127/58
[2017-04-10] MEDS: VALSARTAN 80 MG TABLET PO SCH (08:39)
[2017-04-10] MEDS: LACTOBACILLUS RHAMNOSUS GG 1 EACH CAP.SPRINK PO SCH ×2 (08:39→17:28)
[2017-04-10] MEDS: MIRTAZAPINE 15 MG TABLET PO SCH ×2 (08:40→17:28)
[2017-04-10] MEDS: predniSONE 20 MG TABLET PO SCH (08:40)
[2017-04-10] MEDS: LEVOTHYROXINE SODIUM 75 MCG TABLET PO SCH (08:40)
[2017-04-10] MEDS: AMIODARONE HCL 200 MG TABLET PO SCH ×2 (08:41→17:26)
[2017-04-10] MEDS: DORZOLAMIDE OPTH 2% 10 ML BOTTLE LEFTEYE SCH ×2 (08:42→17:27)
[2017-04-10] MEDS: TIMOLOL 0.5% SOLN OPHTH 5 ML BOTTLE LEFTEYE SCH ×2 (08:42→17:27)
[2017-04-10] MEDS: LOPERAMIDE HCL (2 MG CAP) 2 MG CAPSULE PO PRN (11:38)
--- NOTE | 2017-04-10 12:00 | NUR ---
RN NOTES PT SITTING UP ON A CHAIR , STABLE , CONTINUE TO MONITOR .
[2017-04-10 12:12] LABS: INR 2.62 (0.87-1.13); PROTHROMBIN TIME 29.8 SECS (9.5-12.7)
[2017-04-10 12:17] LABS: INFLUENZA A Negative (Negative); PARAINFLUENZA 2 Negative (Negative); PARAINFLUENZA 3 Negative (Negative)
[2017-04-10 15:15] LABS: *MYCOPLASMA PNEUMONIAE IgG 122 U/mL (0-99); *MYCOPLASMA PNEUMONIAE IgM <770 U/mL (0-769)
[2017-04-10 16:00] VITALS: BP 118/64
[2017-04-10] MEDS: WARFARIN SODIUM 2 MG TABLET PO SCH (17:27)
--- NOTE | 2017-04-10 18:28 | NUR ---
RN NOTES PT STABLE, L UPPER ARM MIDLINE CDI, MEDICATED PER MD ORDER . NO SIGNIFICANT CHANGES NOTED ON THIS SHIFT.
--- NOTE | 2017-04-10 19:30 | NUR ---
MS RN INITIAL NOTE RECEIVED PT SITTING UP IN CHAIR. A/O X4 AND ABLE TO MAKE NEEDS KNOWN. ON 3L OF O2 AND SATING WELL. L UPPER ARM MIDLINE PATENT, CLEAN AND INTACT, FLUSHING WELL. ISOLATION PRECAUTIONS OBSERVED. CALL LIGHT WITHIN EASY REACH AT ALL TIMES. WILL CONTINUE TO MONITOR.
[2017-04-10 20:00] VITALS: BP 124/67
[2017-04-10] MEDS: SENNOSIDES/DOCUSATE SODIUM 1 TAB TABLET PO SCH (21:39)
[2017-04-10] MEDS: SERTRALINE HCL 50 MG TABLET PO SCH (21:39)
[2017-04-10] MEDS: ZOLPIDEM TARTRATE 5 MG TABLET PO PRN (21:39)
[2017-04-10] MEDS: LATANOPROST EYE DROP 0.005% 2.5 ML BOTTLE LEFTEYE SCH (21:40)
[2017-04-11] MEDS: ALBUTEROL HALF STRENGTH 1.25 MG/3 ML VIAL.NEB NEB SCH ×5 (03:15→19:53)
[2017-04-11] MEDS: IPRATROPIUM NEB FS 0.5 MG/2.5 ML AMPUL.NEB NEB SCH ×5 (03:15→19:54)
[2017-04-11 04:00] VITALS: BP 145/67
[2017-04-11] MEDS: PANTOPRAZOLE 40 MG TABLET.DR PO SCH (06:04)
--- NOTE | 2017-04-11 06:50 | NUR ---
MS RN CLOSING NOTE PT REMAINED STABLE DURING SHIFT. NO ACUTE DISTRESS NOTED. NO C/O PAIN. ALL NEEDS ATTENDED TO AND MET PROMPTLY. CALL LIGHT WITHIN REACH AT ALL TIMES. DROPLET ISOLATION PRECAUTION OBSERVED. WILL ENDORSE TO NEXT SHIFT FOR HANNA.
[2017-04-11 07:26] LABS: INR 2.87 (0.87-1.13); PROTHROMBIN TIME 32.8 SECS (9.5-12.7)
[2017-04-11 07:33] LABS: CALCIUM, SERUM 8.2 mg/dL (8.5-10.1); POTASSIUM 3.4 mmol/L (3.5-5.1)
[2017-04-11] MEDS: ACETYLCYSTEINE 10% SOLN 400 MG/4 ML VIAL NEB SCH ×2 (07:44→19:54)
--- NOTE | 2017-04-11 07:49 | NUR ---
MS RN NOTE PATIENT IN BED , ALL NEEDS ATTENDED, ALERT , ORIENTED , SIDE RAILS UP FOR SAFETY . GEORGINA MID LINE IN PLACE, NO S\S INFECTION NOTED, NO SOB NOTED , ON 3 L NA O2 , BED IN LOWEST AND LOCKED POSITION , PLAN OF CARE DISCUSSED WITH BRIGETTE , WILL CONT TO MONITOR CLOSELY
[2017-04-11 08:00] VITALS: BP 109/61
[2017-04-11] MEDS: MIRTAZAPINE 15 MG TABLET PO SCH ×2 (09:03→16:56)
[2017-04-11] MEDS: LACTOBACILLUS RHAMNOSUS GG 1 EACH CAP.SPRINK PO SCH ×2 (09:03→16:54)
[2017-04-11] MEDS: LEVOTHYROXINE SODIUM 75 MCG TABLET PO SCH (09:03)
[2017-04-11] MEDS: AMIODARONE HCL 200 MG TABLET PO SCH ×2 (09:04→16:54)
[2017-04-11] MEDS: predniSONE 20 MG TABLET PO SCH (09:05)
[2017-04-11] MEDS: DORZOLAMIDE OPTH 2% 10 ML BOTTLE LEFTEYE SCH ×2 (09:09→16:57)
[2017-04-11] MEDS: TIMOLOL 0.5% SOLN OPHTH 5 ML BOTTLE LEFTEYE SCH ×2 (09:14→16:57)
[2017-04-11] MEDS: VALSARTAN 80 MG TABLET PO SCH (10:49)
[2017-04-11] MEDS ORDERED: POTASSIUM CHLORIDE 20 MEQ TAB.PRT.SR PO ONE (11:00)
--- NOTE | 2017-04-11 12:00 | NUR ---
MS RN NOTE MD AWARE OF K LEVEL 3.4 , PT GIVEN 1X DOSE K- PO. PER PATIENT REQUEST WANTS TO SPEAK TO CASE MANAGEMENT IN REGARDS TO PLACEMENT, MESSAGE LEFT FOR JANICE , NURSING STAFF WILL CONTINUE TO FOLLOW , AWAITING RETURN PHONE CALL
--- NOTE | 2017-04-11 12:32 | NUR ---
MS RN NOTE SPOKE WITH MORGAN GARCIA, DIRECTOR CUSTOMER ABOUT INR 2.87 OK TO CONTINUE COUMADIN 2 MG , FROM DIRECTOR CUSTOMER PERSPECTIVE PATIENT OK TO DISCHARGE , SPOKE WITH [facility] TRAN TO FOLLOW- UP WITH PATIENT FOR PLACEMENT
--- NOTE | 2017-04-11 14:09 | NUR ---
MS RN NOTE SPOKE WITH MARC HYDROMETALLURGICAL ENGINEER, CHAR WORKER WORKING ON DISCHARGE CURRENTLY
--- NOTE | 2017-04-11 14:40 | NUR ---
MS RN NOTES PT ABLE TO AMBULATE WITH MODERATE ASSISTANCE PER PT .
[2017-04-11 16:00] VITALS: BP_SYST 117; BP_DIAS 60; BP_DIAS 66
[2017-04-11] MEDS: WARFARIN SODIUM 2 MG TABLET PO SCH (16:56)
--- NOTE | 2017-04-11 16:56 | NUR ---
WASTE WATER OPERATOR NOTE PER JANICE DATA CONVERSION DEVELOPER NO BED AVAILABLE TO D\C WILL F\U TOMORROW
[2017-04-11 17:00] VITALS: BP 126/79
--- NOTE | 2017-04-11 17:18 | NUR ---
NS RN CLOSING NOTE MS RN CLOSING NOTE PT REMAINED STABLE DURING SHIFT. NO ACUTE DISTRESS NOTED. NO C/O PAIN. ALL NEEDS ATTENDED TO AND MET PROMPTLY. CALL LIGHT WITHIN REACH AT ALL TIMES. DROPLET ISOLATION PRECAUTION OBSERVED. PT HAS EXPRESSED CONCERNS ABOUT PLACEMENT , CASE MANAGEMENT NOTIFIED AND HAS COMMUNICATED WITH PATIENT AND DAUGHTER IN REGARDS TO PLAN OF CARE, NURSING STAFF HAS ALSO REASSURED THE PATIENT ABOUT THE PLAN OF CARE A POSSIBILITY OF DISCHARGE NURSING STAFF WILL CONTINUE TO FOLLOW . DAY SHIFT RN WILL ENDORSE TO NEXT SHIFT FOR HANNA.
--- NOTE | 2017-04-11 17:30 | NUR ---
DEGREASING SOLUTION RECLAIMER NOTE UP ON CHAIR,FAMILY AT BEDSIDE , ALL NEEDS ATTENDED , WILL CONT TO MONITOR CLOSELY
--- NOTE | 2017-04-11 18:06 | NUR ---
RN CLOSING NOTE F/U PT REMAINED STABLE THROUGHOUT THE REMAINDER OF THE SHIFT . NO ACUTE DISTRESS NOTED. NO C/O PAIN. ALL NEEDS ATTENDED TO AND MET PROMPTLY. CALL LIGHT WITHIN REACH AT ALL TIMES. DROPLET ISOLATION PRECAUTION OBSERVED. PT HAS EXPRESSED CONCERNS ABOUT PLACEMENT , CASE MANAGEMENT NOTIFIED AND HAS COMMUNICATED WITH PATIENT AND DAUGHTER IN REGARDS TO PLAN OF CARE, NURSING STAFF HAS ALSO REASSURED THE PATIENT ABOUT THE PLAN OF CARE A POSSIBILITY OF DISCHARGE NURSING STAFF WILL CONTINUE TO FOLLOW . DAY SHIFT RN WILL ENDORSE TO NEXT SHIFT FOR HANNA.
--- NOTE | 2017-04-11 19:06 | NUR ---
MS PRODUCT PLANNER NOTE HALI RN SPOKE WITH CASE JERMAINE QUIJANO FROM [facility] ([phone]) STATES PATIENT BED IS READY AT [facility] BED [facility]32. DISCHARGE PAPERWORK PREPARED, TRANSPORTATION SCHEDULED FOR 0 VIA AMBULANCE. HALI ADVISED NIGHTSHIFT NURSE JEFRY TO CONTACT REHAB CENTER TO REPORT OF FOR SCHEDULED DISCHARGE. CHARGE NURSE SOON NOTIFIED, CASE JERMAINE MARC NOTIFIED. PT PROVIDED CONTACT INFORMATION FOR THE REHAB FACILITY ADDRESS AND PHONE NUMBER NO ISSUES NOTED, NO COMPLAINTS VIA PATIENT OR FAMILY. NURSING STAFF WILL CONTINUE TO FOLLOW PATIENT.
--- NOTE | 2017-04-11 19:17 | NUR ---
MS RN NOTE SPOKE WITH DAUGHTER FRANK AWARE THAT PAT[facility]SF[facility]
--- NOTE | 2017-04-11 19:30 | NUR ---
MS RN INITIAL NOTE PT RECEIVED IN BED WITH FAMILY AT BEDSIDE. AWAKE AND ALERT X4 AND ABLE TO MAKE NEEDS KNOWN. ON 3L OF O2 AND SATING WELL. PT WILL BE PICKED UP AT 2130 BY [facility] AND [facility] TO [facility]. CALL LIGHT WITHIN REACH. WILL CONTINUE TO MONITOR.
[2017-04-11 20:00] VITALS: BP 133/67
--- NOTE | 2017-04-11 20:30 | NUR ---
MS RN NOTE SPOKE WITH SAMM FORKLIFT TECHNICIAN OF [facility] REGARDING PT ON DROPLET ISOLATION PRECAUTIONS. SHE CALLED BACK TO CONFIRM PT STILL BEING TRANSFERRED TO FACILITY.
--- NOTE | 2017-04-11 20:45 | NUR ---
MS RN NOTE SPOKE WITH NURSE ANG AT [facility] TO GIVE REPORT FOR PT AND FAXED OVE MEDICATION LIST.
[2017-04-11] MEDS: SENNOSIDES/DOCUSATE SODIUM 1 TAB TABLET PO SCH (21:00)
[2017-04-11] MEDS: SERTRALINE HCL 50 MG TABLET PO SCH (21:01)
[2017-04-11] MEDS: LATANOPROST EYE DROP 0.005% 2.5 ML BOTTLE LEFTEYE SCH (21:01)
[2017-04-11 21:46] VITALS: BP 168/83
[2017-04-11] MEDS: CLONIDINE HCL 0.1 MG TABLET PO PRN (21:46)
--- NOTE | 2017-04-11 21:50 | NUR ---
PT PICKED UP BY [facility] EMT AND TRANSFERRED VIA [facility]. NO ACUTE DISTRESS NOTED. ON 2L OF O2 AND SATING AT 97%. GEORGINA MIDLINE REMOVED. NO S.SX OF INFECTION OR BLEEDING NOTED ON IV SITE.BP 168/83, RECHECKED SEVERAL TIMES AND REMAINED ELEVATED. CLONIDINE 0.1 MG GIVEN BY MOUTH AND WELL TOLERATED. BP RECHECKED AND STABLE. NO C/O PAIN NOTED. VITAL SIGNS WNL.
[2017-04-12] MEDS ORDERED: predniSONE 10 MG TABLET PO SCH (09:00)
== END 2017-04-11 22:28 | DRG 871 ==
LOC: ER 08:54 → TELE1 11:37 → ICU 13:42 → TELE-TD 03-29 17:25 → TELE1 03-30 15:24 → MEDSG1 04-01 10:31
PROVIDERS: ADMIT Internal Medicine; ATTEND Internal Medicine
PROC: 05H633Z Insertion of Infusion Device into Left Subclavian Vein, Percutaneous Approach (ICD-10-PCS; principal; 2017-03-27)
DX: A41.9 Sepsis, unspecified organism (principal); J15.6 Pneumonia due to other Gram-negative bacteria; J96.01 Acute respiratory failure with hypoxia; N17.0 Acute kidney failure with tubular necrosis; E43 Unspecified severe protein-calorie malnutrition; J96.02 Acute respiratory failure with hypercapnia; J44.0 Chronic obstructive pulmonary disease with (acute) lower respiratory infection; I48.92 Unspecified atrial flutter; I50.32 Chronic diastolic (congestive) heart failure; J84.9 Interstitial pulmonary disease, unspecified; M84.40XA Pathological fracture, unspecified site, initial encounter for fracture; J44.1 Chronic obstructive pulmonary disease with (acute) exacerbation; M81.0 Age-related osteoporosis without current pathological fracture; I11.0 Hypertensive heart disease with heart failure; Z86.718 Personal history of other venous thrombosis and embolism; Z90.49 Acquired absence of other specified parts of digestive tract; D63.8 Anemia in other chronic diseases classified elsewhere; I25.10 Atherosclerotic heart disease of native coronary artery without angina pectoris; I48.0 Paroxysmal atrial fibrillation; I70.0 Atherosclerosis of aorta; K21.9 Gastro-esophageal reflux disease without esophagitis; R79.1 Abnormal coagulation profile; Z79.01 Long term (current) use of anticoagulants; Z79.899 Other long term (current) drug therapy; Z87.891 Personal history of nicotine dependence; Z68.20 Body mass index [BMI] 20.0-20.9, adult
CPT/HCPCS: 36415; 36569; 36600; 71010-TC; 72074-TC; 72128-TC; 76604-TC; 80048-TC; 80053-TC; 80061-TC; 80076-TC; 80202-TC; 81000-TC; 82306; 82803-TC; 83605-TC; 83735-TC; 83880; 84100-TC; 84439-TC; 84443-TC; 84484-TC; 85025-TC; 85610-TC; 85730-TC; 86713; 86738; 87040-TC; 87081-TC; 87086-TC; 87400; 93307-TC; 93970-TC; 94760-TC; 94799-TC; 97001-TC; 97110-TC; 97116-TC; 97530-TC; A4606; J0282; J0360; J0692; J1940; J2405; J2543; J2930; J3370; J3475; J3480; J3490; J7030; J7050; J7060; Q9967; Z7610

== ENCOUNTER 2018-09-05 06:21 | Inpatient (IN) | payer MEDICARE ==
[~2018-09-05] VITALS: Ht 160 cm; Wt 56.2 kg
[~2018-09-05 06:21] MED LIST: ACET325T53 PO; ALBU1.25 NEB; AMIO200T7 PO; ATOR20TA PO; BISA10SU8 RC; CLON0.1T PO; DORZ10DR13 LEFTEYE; GUAI5SYR PO; HYDR-552 PO; Ipratropium Bromide NEB; LACT1CAP57 PO; LATA2.5D7 LEFTEYE; LEVO75TA7 PO; LOPE2TAB57 PO; MIRT7.5T10 PO; NITR0.4T48 SL; ONCOUMADIN PO; ONDA4SYR IV; PANT40TA4 PO; PRED20TA PO; PRED5TAB48 PO; SALM50DI IH; SENN-74 PO; SERT100T12 PO; Valsartan PO; WARF2TAB57 PO
[2018-09-05 06:57] VITALS: BP 155/74
--- NOTE | 2018-09-05 07:00 | NUR ---
MS RN INITIAL NOTES PT ENROUTE TO OR WITH OR NURSE AT BS.
[2018-09-05] MEDS ORDERED: BUPIVACAINE MPF 0.5% W/EPI INJ 30 ML VIAL ONE (07:24)
[2018-09-05] MEDS ORDERED: FENTANYL PF 100MCG/2ML AMPUL ONE (07:24)
[2018-09-05] MEDS ORDERED: LIDOCAINE 0.5% HCL 50 ML VIAL ONE (08:30)
[2018-09-05] MEDS ORDERED: LIDOCAINE 1% INJ 50 ML MDV IJ ONE (08:31)
[2018-09-05] MEDS ORDERED: BACITRACIN 50000 UNITS/VIAL ONE (08:33)
[2018-09-05] MEDS ORDERED: VANCOMYCIN 1 GM VIAL ONE (09:31)
--- NOTE | 2018-09-05 10:15 | NUR ---
MS RN NOTES RECEIVED PT IN BED WITH OR NURSE AT BS. PT'S VS TAKEN. O2 AT 5LNC. SAT 95%. PT IS AWAKE AND ALERT. DAUGHTER AT BS. SURGEON ROUNDING WITH PATIENT. PRESCRIPTION GIVEN. PT IS HERE UNTIL STABILIZED. WILL CONT TO MONITOR FOR CHANGES.
[2018-09-05] MEDS ORDERED: oxyCODONE/APAP (5/325 MG) 1 UDTAB TABLET PO PRN (11:00)
[2018-09-05] MEDS ORDERED: HYDROMORPHONE 1 MG/1 ML DISP.SYRIN IV PRN (11:00)
[2018-09-05 12:00] VITALS: BP 128/69
--- NOTE | 2018-09-05 15:22 | NUR ---
MS RN D/C NOTES PT D/C WITH FAMILY AT BS. ASSISTED PT TO BR. REMOVED IV, ID BAND.BELONGINGS AND DISCHARGE INSTRUCTION SIGNED. EDUCATED PATIENT REGARDING NEW PRESCRIPTION. PT BROUGHT ALONG HOME OXYGEN. PT EXPRESSED NO PAIN AT THIS TIME. LEFT WITH TELECOMMUNICATIONS SPECIALIST IN W/C. FAMILY IS DRIVING PATIENT HOME.
== END 2018-09-05 14:50 | disposition home or self-care (01) | DRG 512 ==
LOC: DS 06:21 → MEDSG1 06:24
PROVIDERS: ADMIT Specialist; ATTEND Specialist
PROC: 0PSH04Z Reposition Right Radius with Internal Fixation Device, Open Approach (ICD-10-PCS; principal; 2018-09-05 07:30)
DX: S52.561A Barton's fracture of right radius, initial encounter for closed fracture (principal); W19.XXXA Unspecified fall, initial encounter; Y93.9 Activity, unspecified; Y92.009 Unspecified place in unspecified non-institutional (private) residence as the place of occurrence of the external cause
CPT/HCPCS: 73100-TC; J0690; J1100; J3010; J3370; J3490; Z7610

== ENCOUNTER 2018-11-10 13:31 | Outpatient (CLI) | payer MEDICARE ==
[~2018-11-10 13:31] MED LIST changes: -ACET325T53 PO; -ALBU1.25 NEB; -AMIO200T7 PO; -ATOR20TA PO; -BISA10SU8 RC; +CARV6.252 PO; +CEFAZOLIN; -CLON0.1T PO; +DABI75CA3 PO; -DORZ10DR13 LEFTEYE; -GUAI5SYR PO; -HYDR-552 PO; -Ipratropium Bromide NEB; -LACT1CAP57 PO; -LATA2.5D7 LEFTEYE; -LEVO75TA7 PO; -LOPE2TAB57 PO; -MIRT7.5T10 PO; -NITR0.4T48 SL; -ONCOUMADIN PO; -ONDA4SYR IV; -PANT40TA4 PO; -PRED20TA PO; -PRED5TAB48 PO; -SALM50DI IH; -SENN-74 PO; -SERT100T12 PO; +SERT50TA PO; -Valsartan PO; -WARF2TAB57 PO
== END 2018-11-10 23:59 | disposition home health service (06) ==
LOC: WOU 13:31
PROVIDERS: ATTEND Surgery
DX: T81.49XA Infection following a procedure, other surgical site, initial encounter (principal); S52.501G Unspecified fracture of the lower end of right radius, subsequent encounter for closed fracture with delayed healing; S81.812A Laceration without foreign body, left lower leg, initial encounter; E44.0 Moderate protein-calorie malnutrition; Z91.81 History of falling; W19.XXXA Unspecified fall, initial encounter; Y92.89 Other specified places as the place of occurrence of the external cause
CPT/HCPCS: 11043; 11046; 15271; 97605; A6402; Q4172; Z7610

== ENCOUNTER 2018-11-17 10:37 | Outpatient (CLI) | payer MEDICARE | END 2018-11-17 23:59 | disposition home health service (06) | LOC: WOU 10:37 | PROVIDERS: ATTEND Surgery | DX: T81.49XA Infection following a procedure, other surgical site, initial encounter (principal); S52.501G Unspecified fracture of the lower end of right radius, subsequent encounter for closed fracture with delayed healing; S81.812A Laceration without foreign body, left lower leg, initial encounter; L03.113 Cellulitis of right upper limb; E44.0 Moderate protein-calorie malnutrition; Z91.81 History of falling; W19.XXXA Unspecified fall, initial encounter; Y92.89 Other specified places as the place of occurrence of the external cause | CPT/HCPCS: 11043; A6402; Z7610 ==

== ENCOUNTER 2018-11-24 11:32 | Outpatient (CLI) | payer MEDICARE | END 2018-11-24 23:59 | disposition home health service (06) | LOC: WOU 11:32 | PROVIDERS: ATTEND Surgery | DX: T81.49XA Infection following a procedure, other surgical site, initial encounter (principal); S52.501G Unspecified fracture of the lower end of right radius, subsequent encounter for closed fracture with delayed healing; S81.812A Laceration without foreign body, left lower leg, initial encounter; L03.113 Cellulitis of right upper limb; E44.0 Moderate protein-calorie malnutrition; Z91.81 History of falling; W19.XXXA Unspecified fall, initial encounter; Y92.89 Other specified places as the place of occurrence of the external cause | CPT/HCPCS: 11042; 11043; 97605-TC; A6402 ==

== ENCOUNTER 2018-12-01 13:32 | Outpatient (CLI) | payer MEDICARE | END 2018-12-01 23:59 | disposition home health service (06) | LOC: WOU 13:32 | PROVIDERS: ATTEND Surgery | DX: T81.49XA Infection following a procedure, other surgical site, initial encounter (principal); S52.501G Unspecified fracture of the lower end of right radius, subsequent encounter for closed fracture with delayed healing; S81.812A Laceration without foreign body, left lower leg, initial encounter; L03.113 Cellulitis of right upper limb; E44.0 Moderate protein-calorie malnutrition; Z91.81 History of falling; W19.XXXA Unspecified fall, initial encounter; Y92.89 Other specified places as the place of occurrence of the external cause | CPT/HCPCS: 11042; 11043; A6402 ==

== ENCOUNTER 2018-12-08 13:28 | Outpatient (CLI) | payer MEDICARE ==
[~2018-12-08 13:28] MED LIST changes: +CT SWABBABLE VALVE TRANS SET 1 EA INFUS.SET MC ONE; +IOHEXOL-300 100 ML VIAL IV ONE
== END 2018-12-08 23:59 | disposition home health service (06) ==
LOC: WOU 13:28
PROVIDERS: ATTEND Surgery
DX: T81.49XA Infection following a procedure, other surgical site, initial encounter (principal); S52.501G Unspecified fracture of the lower end of right radius, subsequent encounter for closed fracture with delayed healing; S81.812A Laceration without foreign body, left lower leg, initial encounter; E44.0 Moderate protein-calorie malnutrition; L03.113 Cellulitis of right upper limb; Z91.81 History of falling; W19.XXXA Unspecified fall, initial encounter; Y92.89 Other specified places as the place of occurrence of the external cause
CPT/HCPCS: 11042; A6402; Z7610; Q9967

== ENCOUNTER 2018-12-15 13:45 | Outpatient (CLI) | payer MEDICARE ==
[~2018-12-15 13:45] MED LIST changes: -CT SWABBABLE VALVE TRANS SET 1 EA INFUS.SET MC ONE; -IOHEXOL-300 100 ML VIAL IV ONE
== END 2018-12-15 23:59 | disposition home health service (06) ==
LOC: WOU 13:45
PROVIDERS: ATTEND Surgery
DX: T81.49XA Infection following a procedure, other surgical site, initial encounter (principal); S52.501G Unspecified fracture of the lower end of right radius, subsequent encounter for closed fracture with delayed healing; S81.812A Laceration without foreign body, left lower leg, initial encounter; L03.113 Cellulitis of right upper limb; E44.0 Moderate protein-calorie malnutrition; Z91.81 History of falling; W19.XXXA Unspecified fall, initial encounter; Y92.89 Other specified places as the place of occurrence of the external cause
CPT/HCPCS: 11042; A6402

== ENCOUNTER 2018-12-22 13:34 | Outpatient (CLI) | payer MEDICARE | END 2018-12-22 23:59 | disposition home health service (06) | LOC: WOU 13:34 | PROVIDERS: ATTEND Surgery | DX: T81.49XA Infection following a procedure, other surgical site, initial encounter (principal); S81.812A Laceration without foreign body, left lower leg, initial encounter; S52.501G Unspecified fracture of the lower end of right radius, subsequent encounter for closed fracture with delayed healing; L03.113 Cellulitis of right upper limb; E44.0 Moderate protein-calorie malnutrition; Z91.81 History of falling; W19.XXXA Unspecified fall, initial encounter; Y92.89 Other specified places as the place of occurrence of the external cause | CPT/HCPCS: 11042; A6402; Z7610 ==

== ENCOUNTER 2018-12-29 13:30 | Outpatient (CLI) | payer MEDICARE | END 2018-12-29 23:59 | disposition home health service (06) | LOC: WOU 13:30 | PROVIDERS: ATTEND Surgery | DX: T81.49XA Infection following a procedure, other surgical site, initial encounter (principal); S81.812A Laceration without foreign body, left lower leg, initial encounter; S52.501G Unspecified fracture of the lower end of right radius, subsequent encounter for closed fracture with delayed healing; L03.113 Cellulitis of right upper limb; E44.0 Moderate protein-calorie malnutrition; Z91.81 History of falling; W19.XXXA Unspecified fall, initial encounter; Y92.89 Other specified places as the place of occurrence of the external cause | CPT/HCPCS: 11042; A6402 ==

== ENCOUNTER 2019-01-05 13:57 | Outpatient (CLI) | payer MEDICARE | END 2019-01-05 23:59 | disposition home health service (06) | LOC: WOU 13:57 | PROVIDERS: ATTEND Surgery | DX: T81.89XA Other complications of procedures, not elsewhere classified, initial encounter (principal); E44.0 Moderate protein-calorie malnutrition; L03.113 Cellulitis of right upper limb; Z91.81 History of falling; Z98.890 Other specified postprocedural states | CPT/HCPCS: 11042; A6402 ==

== ENCOUNTER 2019-01-12 13:20 | Outpatient (CLI) | payer MEDICARE | END 2019-01-12 23:59 | disposition home health service (06) | LOC: WOU 13:20 | PROVIDERS: ATTEND Surgery | DX: Z09 Encounter for follow-up examination after completed treatment for conditions other than malignant neoplasm (principal); Z98.890 Other specified postprocedural states; E44.0 Moderate protein-calorie malnutrition; Z91.81 History of falling | CPT/HCPCS: A6402; G0463 ==

== ENCOUNTER 2019-01-13 12:18 | Outpatient (CLI) | payer MEDICARE ==
[2019-01-13 12:56] LABS: ABG BASE EXCESS 1.6 mmol/L; ABG OXYGEN SATURATION 91.9 % (92.0-98.5); ABG PCO2 41.3 mmHg (35.0-45.0); ABG PH 7.421 (7.350-7.450); ABG PO2 65.5 mmHg (75.0-100.0); AaDO2 34.8 mmHg; COHb 0.6 % (0.5-1.5); MetHb 0.4 % (0.0-1.5); SITE, ABG Left Brachial; VENT MODE, BG room air
== END 2019-01-13 23:59 | disposition home or self-care (01) ==
LOC: LAB 12:18
PROVIDERS: ATTEND Internal Medicine Pulmonary Disease
DX: R06.02 Shortness of breath (principal)
CPT/HCPCS: 36600